=== PATIENT | male | born 1960 | race Caucasian/White ===

== ENCOUNTER 2018-03-04 06:09 | Observation (INO) ==
[2018-03-04] MEDS ORDERED: *HR* Labetalol 100 MG/20 ML MDV IVP ONE (06:15)
--- NOTE | 2018-03-04 06:21 | Emergency Department Note ---
Disposition Clinical Impression: Stroke-like symptoms Disposition: Still a Patient Condition: Fair Neuro HPI - General Chief Complaint: ED Neuro Symptoms/Deficit Stated Complaint: possible stroke Time Seen by Provider: 03/04/18 06:14 Source: patient, EMS Mode of arrival: EMS Limitations: no limitations Nursing Notes Reviewed: Yes Vital Signs Reviewed: Yes - History of Present Illness HPI Narrative: 57-year-old male presents to the emergency department with strokelike symptoms. Patient does have history of high blood pressure but is very noncompliant with medications. EMS stated that he was complaining of right-sided weakness in his leg and his arm but the arm has since resolved. They said that he woke up at approximate 5 AM with this last known normal was when he went to bed last night. was one that called EMS. Patient states he does not have any headaches no neck pain no fever chest pain shortness of breath abdominal pain loss of bladder or bowels and has had no recent trauma. Patient states she does feel weak in his right leg otherwise has no complaints. - Related Data Home Medications: Previous Rx's Medication Instructions Recorded Cephalexin [Keflex] 500 mg PO TID #21 capsule 02/08/18 Allergies/Adverse Reactions: Allergies Allergy/AdvReac Type Severity Reaction Status Date / Time No Known Allergies Allergy Verified 02/08/18 10:32 All systems ED: reviewed and negative except as stated. Review of Systems: As Per HPI Constitutional: Denies: fever, chills, weakness, weight change Eyes: Denies: eye pain, eye discharge, vision change ENT ED: Denies: ear pain, throat pain, dental pain, hearing loss, epistaxis, congestion, dysphagia Cardiovascular: Denies: chest pain, palpitations, dyspnea on exertion, edema, syncope Respiratory: Denies: cough, dyspnea, wheezes, hemoptysis, stridor Gastrointestinal: Denies: abdominal pain, nausea, vomiting, diarrhea, constipation, hematemesis, melena, hematochezia Genitourinary: Denies: urgency, dysuria, frequency, hematuria Musculoskeletal: Denies: back pain, neck pain, arthralgia, myalgia Integumentary: Denies: rash, abrasion, lesions Neurological: Reports: weakness. Denies: headache, numbness, paresthesias, confusion, abnormal gait, vertigo Psychiatric: Denies: anxiety, depression, suicidal thoughts, homicidal thoughts , auditory hallucinations, visual hallucinations Endocrine: Denies: fatigue Hematological/Lymphatic: Denies: easy bleeding, easy bruising Allergic/Immunologic: Denies: facial swelling, urticaria Past Medical History - Past Medical History Attestation: Yes The following information was validated with the patient. Source: patient Medical history: Reports: diabetes, hypertension Psychiatric history: Reports: no psych history - Social History Smoking Status: Current every day smoker Alcohol use: Reports: none Drug use: Reports: marijuana Physical Exam - General Limitations: no limitations General appearance: alert, in no apparent distress - Head Head exam: atraumatic, normocephalic, normal inspection - Eye Eye exam: Present: normal appearance, PERRL, EOMI - ENT ENT exam: normal exam, normal oropharynx, mucous membranes moist - Neck Neck exam: Present: normal inspection, full ROM, trachea midline - Chest Chest inspection: Present: normal inspection, symmetric chest wall rise - Respiratory Respiratory exam: Present: normal lung sounds bilaterally - Cardiovascular Cardiovascular exam: Present: regular rate, normal rhythm, normal heart sounds - Abdominal Exam Abdominal exam: Present: soft, Non-Tender. Absent: tenderness, distention, guarding, rebound, rigidity - Extremities Exam Extremities exam: Present: normal inspection, full ROM. Absent: tenderness, pedal edema - Expanded Lower Extremity Exam Neurovascular/Tendon exam: Present: normal capillary refill. Absent: pulse deficit, motor deficit, sensory deficit, tendon deficit - Back Exam Back exam: Present: normal inspection, full ROM. Absent: tenderness, CVA tenderness (R), CVA tenderness (L) - Neurological Exam Neurological exam: Present: alert, oriented X3 - Expanded Neurological Exam Patient oriented to: Present: person, place, time Speech: Present: expressive aphasia (Mild) Cranial nerves: EOM function (II, III, IV, ): Normal, facial sensation (V): Normal, facial palsy (VII): Normal, spinal accessory function (XI): Normal, tongue deviation (XII): Normal Cerebellar function: finger to nose: Normal, heel to mckinney: Normal Motor strength - LUE: 4/5 Motor strength - RUE: 4/5 Motor strength - LLE: 4/5 Motor strength - RLE: 2/5 Upper motor neuron exam: bj neglect: Absent bilaterally, pronator drift: Absent bilaterally Sensory exam upper extremity: light touch: Normal Sensory exam lower extremity: light touch: Normal Coma Scale Eye Opening: Spontaneous Coma Scale Motor Response: Obeys Commands Coma Scale Verbal Response: Oriented Coma Scale Total: 15 - Skin Skin exam: Present: warm, dry, intact, normal color Course Course Narrative: 57-year-old male here with strokelike symptoms. Due to patient's timeframe of waking up and last known well being when the patient fell sleep the stroke alert was canceled. So we will do normal stroke workup including CT head, basic labs including CBC, BMP, troponin, coags as well as an EKG. Vital Signs Temperature 98.5 F 03/04/18 06:09 Pulse Rate 83 03/04/18 06:09 Respiratory Rate 18 03/04/18 06:09 Blood Pressure 177/86 03/04/18 06:09 O2 Sat by Pulse Oximetry 100 03/04/18 06:09 Temperature 98.5 F 03/04/18 06:09 Pulse Rate 83 03/04/18 06:09 Respiratory Rate 18 03/04/18 06:09 Blood Pressure 177/86 03/04/18 06:09 O2 Sat by Pulse Oximetry 100 03/04/18 06:09 Oxygen Delivery Oxygen Delivery Room Air Neuro Symptoms/Deficit - MDM Narrative Medical decision making narrative: 57-year-old male presented emergency department with strokelike symptoms. Patient was found by and approximate 5:00 this morning as having weakness in the right side and having difficulty with speech and there was worry for stroke. The last time that someone saw him well was on 11:00 last night. Due to this the patient is outside the window for TPA so the stroke alert was canceled. Patient does have an NIH of 2 After talking with family there was a lot of discussion as to why we cannot give TPA and also patient had elevated blood pressure we explained the situation to family and they understood. We will get a CT of the head as well as basic labs. These are not back so the patient will be signed out to the day team doctor Keith and Dr. Tracey. At this time patient is stable. - Medical Records Medical records reviewed: Yes I reviewed the patient's medical records. - Lab Data Lab results reviewed: Yes I reviewed the patient's lab results. - Radiology Data Radiology results reviewed: Yes I reviewed the patient's radiology results. - EKG Data EKG attestation: Yes I reviewed and interpreted this EKG. EKG results narrative: EKG done at 0 621 review myself and the attending shows normal sinus rhythm rate 72, [place] 126, QRS 103, QTC 441 with a normal axis. There is no acute ST changes no acute T-wave changes no signs of ischemia. No heart block, hypertrophy, heart strain. No WPW/Brugada/HOCM. No old EKG to compare with. NIH Stroke Scale - Level of Consciousness LOC: Alert - LOC Questions LOC Questions: Answers both correctly - LOC Commands LOC Commands: Performs both correctly - Best Gaze Best Gaze: Normal - Visual Visual: No visual loss - Facial Palsy Facial Palsy: Normal - Motor Arms Motor Arm-Left: No drift for 10 seconds Motor Arm-Right: No drift for 10 seconds - Motor Legs Motor Leg-Left: No drift for 5 seconds Motor Leg-Right: Drift, does NOT hit bed - Limb Ataxia Limb Ataxia: Absent of affected limb too weak to perform exam - Sensory Sensory: Normal - Best Language Best Language: No aphasia - Dysarthria Dysarthria: Mild, slurs some words - Extinction and Inattention Extinction and Inattention: Normal - NIHSS Total Score NIHSS Total Score: 2 TPA Checklist - LKW: 3-4.5 hrs Add. Warnings/Precautions Patient/family understanding: The patient/family members have been counseled and understood the risk, benefit , and alternatives of treatment.
--- NOTE | 2018-03-04 06:23 | Emergency Department Note ---
Disposition Clinical Impression: Cerebrovascular accident Qualifiers: CVA mechanism: other Qualified Code(s): I63.8 - Other cerebral infarction Disposition: Still a Patient Forms: ED Satisfaction Letter General Adult HPI - General Chief complaint: ED Neuro Symptoms/Deficit Stated complaint: possible stroke Time Seen by Provider: 03/04/18 06:14 Source: patient, EMS Mode of arrival: EMS Limitations: no limitations - History of Present Illness Pain Scale: 0 - Related Data Previous Rx's Medication Instructions Recorded Cephalexin [Keflex] 500 mg PO TID #21 capsule 02/08/18 Allergies Allergy/AdvReac Type Severity Reaction Status Date / Time No Known Allergies Allergy Verified 02/08/18 10:32 Past Medical History - Past Medical History Medical history: Reports: diabetes, hypertension Psychiatric history: Reports: no psych history - Social History Smoking Status: Current every day smoker Alcohol use: Reports: none Drug use: Reports: marijuana Physical Exam - General Limitations: no limitations General appearance: alert, in no apparent distress Course - Reevaluation(s) Reevaluation #1: ED attending attestation note: I examined this patient and my medical decision-making was reviewed with the emergency medicine resident Olvin Tiwari. I agree with the documented findings , disposition and treatment plan as described except to the extent set forth below. Briefly: 57-year-old male brought in by EMS for possible stroke symptoms. Patient awoke from sleep at 5 AM having weakness of his right lower extremity questionable dysarthria which is resolved. Here for further evaluation. Patient's NIH currently is to. The patient waking up from sleep at 5 AM with the symptoms already present patient is not deemed a candidate for TPA. Patient will get noncontrast head CT screening labs and EKG. Anticipated disposition is admission with neurologic consultation. Disposition pending. Providing 30 minutes of critical care service for this patient Time: 06:21 Vital Signs Temperature 98.5 F 03/04/18 06:09 Pulse Rate 83 03/04/18 06:09 Respiratory Rate 18 03/04/18 06:09 Blood Pressure 177/86 03/04/18 06:09 O2 Sat by Pulse Oximetry 100 03/04/18 06:09 Temperature 98.5 F 03/04/18 06:09 Pulse Rate 83 03/04/18 06:09 Respiratory Rate 18 03/04/18 06:09 Blood Pressure 177/86 03/04/18 06:09 O2 Sat by Pulse Oximetry 100 03/04/18 06:09 Oxygen Delivery Oxygen Delivery Room Air
[2018-03-04 06:25] LABS: Basophils # 0.1 K/mcL (0.0-0.2); Basophils % 0.6 %; Hematocrit 34.3 % (37.5-50.1); Hemoglobin 11.3 g/dL (12.9-16.9); Immature Granulocytes % 0.4 % (0-4); Lymphocytes # 2.5 K/mcL (0.6-4.6); Lymphocytes % 23.6 %; Mean Corpuscular HGB Conc 32.9 g/dL (31.6-35.5); Mean Corpuscular Hemoglobin 30.1 pg (28.0-33.3); Mean Corpuscular Volume 91.2 fL (83.0-100.0); Mean Platelet Volume 10.3 fL (9.4-12.4); Monocytes # 0.9 K/mcL (0.0-1.3); Monocytes % 8.7 %; Neutrophils # 7.1 K/mcL (1.6-8.9); Platelet Count 286 K/mcL (140-400); Red Blood Count 3.76 M/mcL (4.19-5.50); Red Cell Distribution Width 13.9 % (11.5-14.5); Segmented Neutrophils % 66.7 %
[2018-03-04 06:31] LABS: Prothrombin Time 11.7 Seconds (9.4-12.1)
[2018-03-04 06:33] LABS: Activated Partial Thrombo Time 30.8 Seconds (26.0-36.0)
[2018-03-04 06:48] LABS: BUN/Creatinine Ratio 16 (6-26); Blood Urea Nitrogen 40 mg/dL (6-20); Calcium 8.9 mg/dL (8.6-10.3); Carbon Dioxide 21 mEq/L (23-29); Chloride 113 mEq/L (98-107); Glucose 139 mg/dL (70-105); Osmolality,Calculated 296 (280-300); Potassium 5.9 mEq/L (3.5-5.1); Sodium 137 mEq/L (136-145); eGFR For Non-African Americans 27 (> 60)
[2018-03-04 07:08] LABS: Troponin I < 0.03 ng/mL (< 0.04)
--- NOTE | 2018-03-04 07:22 | Emergency Department Note ---
Disposition Clinical Impression: Cerebrovascular accident, Stroke-like symptoms Disposition: Admitted As Inpatient Condition: Fair Forms: ED Satisfaction Letter General Adult HPI - General Chief complaint: ED Neuro Symptoms/Deficit Stated complaint: possible stroke Time Seen by Provider: 03/04/18 06:14 Source: patient, EMS Mode of arrival: EMS Limitations: no limitations - History of Present Illness Pain Scale: 0 - Related Data Home Medications Medication Instructions Recorded Confirmed No Known Home Drugs 03/04/18 03/04/18 Allergies Allergy/AdvReac Type Severity Reaction Status Date / Time No Known Allergies Allergy Verified 02/08/18 10:32 Constitutional: Denies: fever, chills, weakness, weight change Eyes: Denies: eye pain, eye discharge, vision change ENT ED: Denies: ear pain, throat pain, dental pain, hearing loss, epistaxis, congestion, dysphagia Cardiovascular: Denies: chest pain, palpitations, dyspnea on exertion, edema, syncope Respiratory: Denies: cough, dyspnea, wheezes, hemoptysis, stridor Gastrointestinal: Denies: abdominal pain, nausea, vomiting, diarrhea, constipation, hematemesis, melena, hematochezia Genitourinary: Denies: urgency, dysuria, frequency, hematuria Musculoskeletal: Denies: back pain, neck pain, arthralgia, myalgia Integumentary: Denies: rash, abrasion, lesions Neurological: Reports: weakness. Denies: headache, numbness, paresthesias, confusion, abnormal gait, vertigo Psychiatric: Denies: anxiety, depression, suicidal thoughts, homicidal thoughts , auditory hallucinations, visual hallucinations Endocrine: Denies: fatigue Hematological/Lymphatic: Denies: easy bleeding, easy bruising Allergic/Immunologic: Denies: facial swelling, urticaria Past Medical History - Past Medical History Medical history: Reports: diabetes, hypertension Psychiatric history: Reports: no psych history - Social History Smoking Status: Current every day smoker Alcohol use: Reports: none Drug use: Reports: marijuana Physical Exam - General Limitations: no limitations General appearance: alert, in no apparent distress Course Vital Signs Temperature 98.5 F 03/04/18 06:09 Pulse Rate 83 03/04/18 06:09 Respiratory Rate 18 03/04/18 06:09 Blood Pressure 177/86 03/04/18 06:09 O2 Sat by Pulse Oximetry 100 03/04/18 06:09 Temperature 98.5 F 03/04/18 06:09 Pulse Rate 79 03/04/18 06:48 Respiratory Rate 20 03/04/18 06:48 Blood Pressure 169/51 03/04/18 06:48 O2 Sat by Pulse Oximetry 98 03/04/18 06:48 Oxygen Delivery Oxygen Delivery Room Air Medical Decision Making - Lab Data Result diagrams: 03/04/18 06:15 03/04/18 06:15 Lab Results 03/04/18 03/04/18 03/04/18 Range/Units 06:15 06:15 06:15 WBC 10.6 (4.3-11.1) K/mcL RBC 3.76 L (4.19-5.50) M/mcL Hgb 11.3 L (12.9-16.9) g/dL Hct 34.3 L (37.5-50.1) % MCV 91.2 (83.0-100.0) fL MCH 30.1 (28.0-33.3) pg MCHC 32.9 (31.6-35.5) g/dL RDW 13.9 (11.5-14.5) % Plt Count 286 (140-400) K/mcL MPV 10.3 (9.4-12.4) fL Immature Gran % 0.4 (0-4) % Seg Neutrophils % 66.7 % Lymphocytes % 23.6 % Monocytes % 8.7 % Eosinophils % 0.0 % Basophils % 0.6 % Neutrophils # 7.1 (1.6-8.9) K/mcL Lymphocytes # 2.5 (0.6-4.6) K/mcL Monocytes # 0.9 (0.0-1.3) K/mcL Eosinophils # 0.0 (0.0-0.6) K/mcL Basophils # 0.1 (0.0-0.2) K/mcL PT 11.7 (9.4-12.1) Seconds INR 1.0 APTT 30.8 (26.0-36.0) Seconds Sodium 137 (136-145) mEq/L Potassium 5.9 H (3.5-5.1) mEq/L Chloride 113 H (98-107) mEq/L Carbon Dioxide 21 L (23-29) mEq/L BUN 40 H (6-20) mg/dL Creatinine 2.46 H (0.70-1.30) mg/dL Est GFR ( Amer) 33 L (> 60) Est GFR (Non-Af Amer) 27 L (> 60) BUN/Creatinine Ratio 16 (6-26) Glucose 139 H (70-105) mg/dL Calculated Osmolality 296 (280-300) Calcium 8.9 (8.6-10.3) mg/dL Troponin I < 0.03 (< 0.04) ng/mL Attestation Statement - Attestation Attestation: I examined this patient and my medical decision-making was reviewed with the Resident Physician. I agree with the documented findings, disposition and treatment plan as described except to the extent set forth below. 57 year old male presemts to the ED with complaints of stroke like symptoms and neuro defecits. last known well was 2300 of yesterday. PAtine was seen by night team ([facility]) and stroke workup has begun without stroke alert being called due to being outside the window for TpA. We will contineu with stroke workup and then admit to medicine pending CT/labs
--- NOTE | 2018-03-04 07:31 | Emergency Department Note ---
Disposition Clinical Impression: Stroke-like symptoms Cerebrovascular accident Qualifiers: CVA mechanism: unspecified Qualified Code(s): I63.9 - Cerebral infarction, unspecified Disposition: Admitted As Inpatient Condition: Fair Referrals: NONE,PCP [Primary Care Provider] - Lillian Cunningham [Family Provider] - Forms: ED Satisfaction Letter Time of Disposition: 09:07 General Adult HPI - General Chief complaint: ED Neuro Symptoms/Deficit Stated complaint: possible stroke Time Seen by Provider: 03/04/18 06:14 Source: patient, EMS Mode of arrival: EMS Limitations: no limitations Nursing Notes Reviewed: Yes Vital Signs Reviewed: Yes - History of Present Illness HPI Narrative: This is a patient who care has been transferred over to pr by signout. Patient' s reporting last known well was 2300 yesterday. Woke up at 5 AM with dysarthria , right upper and right lower extremity weakness. Patient not a candidate for TPA as he was out of the window. Refer to history of present illness, physical exam, medical decision-making from previous notes. Pain Scale: 0 - Related Data Home Medications Medication Instructions Recorded Confirmed No Known Home Drugs 03/04/18 03/04/18 Allergies Allergy/AdvReac Type Severity Reaction Status Date / Time No Known Allergies Allergy Verified 03/04/18 07:55 Constitutional: Denies: fever, chills, weakness, weight change Eyes: Denies: eye pain, eye discharge, vision change ENT ED: Denies: ear pain, throat pain, dental pain, hearing loss, epistaxis, congestion, dysphagia Cardiovascular: Denies: chest pain, palpitations, dyspnea on exertion, edema, syncope Respiratory: Denies: cough, dyspnea, wheezes, hemoptysis, stridor Gastrointestinal: Denies: abdominal pain, nausea, vomiting, diarrhea, constipation, hematemesis, melena, hematochezia Genitourinary: Denies: urgency, dysuria, frequency, hematuria Musculoskeletal: Denies: back pain, neck pain, arthralgia, myalgia Integumentary: Denies: rash, abrasion, lesions Neurological: Reports: weakness. Denies: headache, numbness, paresthesias, confusion, abnormal gait, vertigo Psychiatric: Denies: anxiety, depression, suicidal thoughts, homicidal thoughts , auditory hallucinations, visual hallucinations Endocrine: Denies: fatigue Hematological/Lymphatic: Denies: easy bleeding, easy bruising Allergic/Immunologic: Denies: facial swelling, urticaria Past Medical History - Past Medical History Medical history: Reports: diabetes, hypertension Psychiatric history: Reports: no psych history - Social History Smoking Status: Current every day smoker Alcohol use: Reports: none Drug use: Reports: marijuana Physical Exam - General Limitations: no limitations General appearance: alert, in no apparent distress - Head Head exam: normocephalic - Eye Eye exam: Present: PERRL - ENT ENT exam: mucous membranes dry - Neck Neck exam: Present: trachea midline - Chest Chest inspection: Present: symmetric chest wall rise - Respiratory Respiratory exam: Present: normal lung sounds bilaterally. Absent: respiratory distress - Cardiovascular Cardiovascular exam: Present: regular rate, normal rhythm, normal heart sounds - Abdominal Exam Abdominal exam: Present: soft, Non-Tender. Absent: distention, guarding, rebound, rigidity - Extremities Exam Extremities exam: Present: normal capillary refill - Back Exam Back exam: Present: full ROM - Neurological Exam Neurological exam: Present: alert, oriented X3, other (Right pronator drift, right lower extremity strength 4 out of 5, severe dysarthria) - Psychiatric Psychiatric exam: Present: other (crying) - Skin Skin exam: Present: warm, dry, intact, normal color Course Vital Signs Temperature 98.5 F 03/04/18 06:09 Pulse Rate 83 03/04/18 06:09 Respiratory Rate 18 03/04/18 06:09 Blood Pressure 177/86 03/04/18 06:09 O2 Sat by Pulse Oximetry 100 03/04/18 06:09 Temperature 98.5 F 03/04/18 06:09 Pulse Rate 78 03/04/18 08:31 Respiratory Rate 20 03/04/18 08:31 Blood Pressure 176/75 03/04/18 08:31 O2 Sat by Pulse Oximetry 97 03/04/18 08:31 Oxygen Delivery Oxygen Delivery Room Air Medical Decision Making - MDM Narrative Medical decision making narrative: Transfer for of care provided to me by the night team. Currently awaiting CT scan of the head without contrast. Patient has elevated creatinine of 2.46. No previous creatinine to compare this to. Potassium is currently 5.9. No evidence of any peaked T waves on the EKG. we will not provide any medical therapy for the potassium at this time. CT scan of the head without contrast and not reveal any intracranial abnormality. Patient had an NIH of 5. Cannot swallow aspirin. We will give it rectally. Was given 325 mg. Patient will be admitted to hospitalist. I discussed this plan at bedside with both girlfriend and sister. Dr. Montanez requested that I speak to the neurologist regarding the case. I have consulted Dr. Bazzi, the neurologist, and he agreed to follow patient. - Lab Data Result diagrams: 03/04/18 06:15 03/04/18 06:15 Lab Results 03/04/18 03/04/18 03/04/18 Range/Units 06:15 06:15 06:15 WBC 10.6 (4.3-11.1) K/mcL RBC 3.76 L (4.19-5.50) M/mcL Hgb 11.3 L (12.9-16.9) g/dL Hct 34.3 L (37.5-50.1) % MCV 91.2 (83.0-100.0) fL MCH 30.1 (28.0-33.3) pg MCHC 32.9 (31.6-35.5) g/dL RDW 13.9 (11.5-14.5) % Plt Count 286 (140-400) K/mcL MPV 10.3 (9.4-12.4) fL Immature Gran % 0.4 (0-4) % Seg Neutrophils % 66.7 % Lymphocytes % 23.6 % Monocytes % 8.7 % Eosinophils % 0.0 % Basophils % 0.6 % Neutrophils # 7.1 (1.6-8.9) K/mcL Lymphocytes # 2.5 (0.6-4.6) K/mcL Monocytes # 0.9 (0.0-1.3) K/mcL Eosinophils # 0.0 (0.0-0.6) K/mcL Basophils # 0.1 (0.0-0.2) K/mcL PT 11.7 (9.4-12.1) Seconds INR 1.0 APTT 30.8 (26.0-36.0) Seconds Sodium 137 (136-145) mEq/L Potassium 5.9 H (3.5-5.1) mEq/L Chloride 113 H (98-107) mEq/L Carbon Dioxide 21 L (23-29) mEq/L BUN 40 H (6-20) mg/dL Creatinine 2.46 H (0.70-1.30) mg/dL Est GFR ( Amer) 33 L (> 60) Est GFR (Non-Af Amer) 27 L (> 60) BUN/Creatinine Ratio 16 (6-26) Glucose 139 H (70-105) mg/dL Calculated Osmolality 296 (280-300) Calcium 8.9 (8.6-10.3) mg/dL Troponin I < 0.03 (< 0.04) ng/mL
[2018-03-04] MEDS ORDERED: Aspirin 325 MG TABLET PO ONE (08:04)
--- NOTE | 2018-03-04 10:22 | Internal Med History&Physical ---
Date of Encounter: 03/04/18 Time of Encounter: 10:22 Internal Medicine - H&P: HPI Chief complaint: weakness in arm and leg Admitted From: Home Plans for Post Hospital Care: Home History of present illness: Mr. Cantrell is a 57 year old male with past medical history of hypertension and diabetes not taking any medication's coming in with complaint of weakness in arm and leg. Patient was at baseline when he went to sleep at around 11:00. He will call up to go to bathroom around 5:00 and noticed that his speech was slurred, head arm and leg weakness on his right side and had difficulty getting up. He denies any weakness or slurring of speech in the past or previous history of stroke. Denies any cardiac history. He has not been to a doctor for many years as per family at bedside. He lives at home with his girlfriend. Denies any chest pain, palpitation, shortness of breath, headache or blurry vision. Denies any pedal edema. Patient had signs of clinical stroke and a head CT scan no was in ER which did not show any bleeding. Patient received aspirin 325 rectally as his swallowing was impaired and 1 dose of labetalol 20 mg IV. On interview patient was alert awake and oriented 3. Denied any other complaints besides the weakness in his right upper and lower extremity as well as difficulty speaking and swallowing. In distress and tearful because of stroke. Family at bedside. Denies any history of any kidney problems. Currently not taking any medications. Past Med Surg Social Fam HX - Past Medical History Medical history: diabetes, hypertension Psychiatric history: no psych history - Social History Smoking Status: Current every day smoker Alcohol use: none Drug use: marijuana Internal Medicine - H&P: Meds No Known Home Drugs 03/04/18 [History] 3 Allergy/AdvReac Type Severity Reaction Status Date / Time No Known Allergies Allergy Verified 03/04/18 07:55 All Systems PM: A 10-system review of systems was performed and is negative for pertinent findings except as documented above in the HPI. - Constitutional Vitals: Temp Pulse Resp BP Pulse Ox 98.5 F 84 20 152/61 98 03/04/18 06:09 03/04/18 10:04 03/04/18 10:04 03/04/18 10:04 03/04/18 10:03 Exam: Constitutional: Vitals as noted. Conversant. No Apparent Distress. Well groomed. Obese. tearful. Eyes exam: Sclera white, conjunctiva clear, no lid lag, PEARLA. ENT exam: Grossly normal hearing. Nasophargeal and Oropharyngeal exam unremarkable. Moist mucus membranes. No JVD, carotid bruit, no cervical lymphadenopathy. no thyromegaly or mass. Respiratory exam: Clear to auscultation bilaterally. No accessory muscle use, rales, rhonchi or wheezes Cardiovascular exam: RRR, +S1, +S2. no murmur, gallop, rubs. No chest wall tenderness GI/Abdominal exam: Soft, Non-tender, Non-distended, normal bowel sounds, soft, no peritoneal signs. no orgenomegaly or mass appreciated. no hernia. Musculoskeletal exam: no atrophy or deformity noted. no edema or cyanosis, warm , pulses palpable and symmetrical in UE/LE. no calf tenderness. Neurological exam: AO X3, Slurring of speech, droling, Mouth deviated toward left with flat nasolabial fold on Rt. Motor weakness on RUE 3/5 and RLE 3/5 compared to 5/5 on RUE and RLE. Diminisehd brachial and knee reflex. Babinski positive on Rt. Skin exam: No skin rash, lesions or ulcers noted. no purpura or ecchymosis. Pych: Tearful. Internal Med - H&P Results - Labs CBC & Chem 7: 03/04/18 06:15 03/04/18 06:15 - Assessment and plan (1) Cerebrovascular accident Current Visit: Yes Status: Acute Assessment and plan: Clinically patient has stroke with symptoms on his right side(Rt face, arm and leg) indicating involvement of Lt MCA and or QUIRINO territory. - We will obtain echocardiogram and carotid ultrasound to evaluate for cardioembolic stroke. - First troponin negative. Patient without chest pain or EKG findings.. - Neurology consulted. We will defer timing of MRI to neurology. - Physical therapy and occupational therapy consulted. - Speech and swallowing evaluation. - Continue daily aspirin. - We will allow permissive hypertension given his stroke. - Continue patient on telemetry Qualifiers: CVA mechanism: other Qualified Code(s): I63.8 - Other cerebral infarction (2) Diabetes Current Visit: Yes Status: Acute Assessment and plan: Patient not taking any medication for diabetes - Monitor Accu-Cheks and low intensity sliding scale insulin - We will obtain HbA1c and lipid profile Qualifiers: Qualified Code(s): E11.9 - Type 2 diabetes mellitus without complications (3) PORFIRIO (acute kidney injury) Current Visit: Yes Status: Acute Assessment and plan: Elevated creatinine and GFR - Unknown baseline. Likely patient has CKD. - We will monitor renal function daily. - Given elevated potassium of 5.9 we will give 500 mL of bolus and Lasix 20 mg IV. EKG without any hyperkalemic changes. Keep patient on telemetry. Follow- up BMP in 6 hours. - We will consult nephrology. (4) Hyperkalemia Current Visit: Yes Status: Acute Assessment and plan: as above (5) HTN (hypertension) Current Visit: Yes Status: Acute Assessment and plan: - Patient not on any home antihypertensives. - Monitor blood pressure. Allow permissive hypertension given likely thrombotic stroke. Qualifiers: Qualified Code(s): I10 - Essential (primary) hypertension (6) DVT prophylaxis Current Visit: Yes Status: Acute Assessment and plan: - Heparin subcutaneous - Time Spent With Patient Total time spent is greater than 50% in coordination of care (as documented) at patient's floor/unit and/or counseling patient:
[2018-03-04] MEDS ORDERED: 0.9 % Sodium Chloride 500 ML IVC ONE (11:01)
[2018-03-04] MEDS ORDERED: Furosemide 20 MG/2 ML VIAL IVP ONE (11:01)
[2018-03-04] MEDS ORDERED: Insulin LISPRO 300 UNITS/3 ML VIAL SQ SCH (11:30)
[2018-03-04] MEDS: *HR* Heparin 5,000 UNIT/ML VIAL SQ SCH ×2 (15:04→20:45)
--- NOTE | 2018-03-04 17:15 | Nephrology Consult Note ---
Date of Encounter: 03/04/18 Time of Encounter: 14:00 Assessment and Plan (1) PORFIRIO (acute kidney injury) Status: Acute Elevated SCr in the setting of untreated DM and likely HTN with baseline unclear Will obtain US of kidney Will check urinary studies Avoid nephrotoxins if possible No acute indication for JEWEL GRINDER at this time Strict I/Os advised Will give gentle fluids while NPO Explained to pt and family repeatedly that the most concerning and pressing issue is neurologic but will follow from a renal standpoint (2) Cerebrovascular accident Status: Chronic Asked nurse to contact hospitalist CHRISTINA to see and patient, CVA of great concern and not yet seen by neurology Qualifiers: CVA mechanism: unspecified Qualified Code(s): I63.9 - Cerebral infarction, unspecified (3) HTN (hypertension) Status: Chronic No aggressive management given possible CVA Qualifiers: Hypertension type: essential hypertension Qualified Code(s): I10 - Essential (primary) hypertension (4) Hyperkalemia Status: Resolved Potassium at 5.9 noted, not tolerating po intake for now Renal diet when able Kayexalate rectally if needed but will hold off and repeat levels History of Present Illness - Reason for Consult Consult date: 03/04/18 Acute Kidney Injury, hyperkalemia Requesting physician: Enid Montanez - History of Present Illness 57 y o male with no PMH except diabetes per family which has remained untreated for years admitted with acute dysathria and right sided hemiparesis. Renal consulted for elevated SCr of 2.46, GFR 27 with baseline unknown as no prior doctor visit or labs in years. Potassium noted at 5.9. No prior history of renal disease or urinary sxs per family. Pt very anxious on prognosis with elevated BP readings up to 180s systolic noted. Pt received lasix, NS 500cc bolus and labetalol so far per nurse. Past Med Surg Social Fam HX - Past Medical History Medical history: diabetes, hypertension Psychiatric history: no psych history - Past Surgical History Surgical History: no surgical history - Social History Smoking Status: Current every day smoker Alcohol use: none Drug use: marijuana - Family History Father History Unknown: Yes Mother History Unknown: Yes Medications and Allergies RX: Acetaminophen [Non-Aspirin] 650 mg PO Q4H PRN 03/28/18 [History] RX: Amlodipine Besylate 10 mg PO DAILY 03/28/18 [History] RX: Aspirin [Lo-Dose Aspirin EC] 81 mg PO DAILY 03/28/18 [History] RX: Atorvastatin Calcium [Lipitor] 80 mg PO HS 03/28/18 [History] RX: Insulin Glargine [Lantus] 20 unit SQ DAILY 03/28/18 [History] RX: Insulin Human Regular [HumuLIN R] 2 - 12 unit SQ TID 03/28/18 [History] RX: Ipratropium/Albuterol Neb [Duoneb] 3 ml IH Q6HR 03/28/18 [History] RX: Melatonin 1 mg PO HS 03/28/18 [History] RX: Omeprazole 40 mg PO DAILY 03/28/18 [History] RX: Sertraline [Zoloft] 25 mg PO DAILY 03/28/18 [History] RX: Sodium Bicarbonate 650 mg PO TID 03/28/18 [History] RX: hydrALAZINE [HydrALAZINE] 75 mg PO TID 03/28/18 [History] RX: traZODone [TraZODone] 25 mg PO HS PRN 03/28/18 [History] RX: Levofloxacin [Levaquin] 750 mg PO DAILY 5 Days #5 tablet 04/01/18 [Rx] RX: Metoprolol [Lopressor] 25 mg PO BID 30 Days #60 tablet 04/01/18 [Rx] Allergy/AdvReac Type Severity Reaction Status Date / Time No Known Allergies Allergy Verified 03/04/18 07:55 Review of Systems All Systems: reviewed and no additional remarkable complaints except as stated (10 systems reviewed and noted in HPI) Exam - Vital Signs Vital signs: Initial Vital Signs Temp Pulse Resp BP Pulse Ox 98.5 F 83 18 177/86 100 03/04/18 06:09 03/04/18 06:09 03/04/18 06:09 03/04/18 06:09 03/04/18 06:09 Vital Signs - Last 8 Hours Temp Pulse Resp BP Pulse Ox 03/04/18 16:09 98.5 F 66 20 163/77 96 03/04/18 11:21 20 158/66 03/04/18 11:00 84 20 152/61 Intake and Output 03/04/18 03/04/18 03/04/18 07:59 15:59 23:59 Intake Total 500 / 500 Output Total 150 / 150 Balance 500 / 500 -150 / -150 Intake: IV Fluids 500 / 500 0.9 % Sodium Chloride 500 ML @ 500 / 500 999 mls/hr IVC .Q31M ONE Rx#: [id number] Output: Urine 150 / 150 Other: # Urine Diapers 1 Blood Glucose* 120 - General Appearance General appearance: moderate distress (unkempt), anxious EENT: ATNC, mucous membranes moist Neck: no JVD, supple Respiratory: clear Cardiology: no edema, normal S1, normal S2 Gastrointestinal: no tenderness, no guarding Integumentary: warm and dry Additional Comments: slurred speech Musculoskeletal: no deformities Psychiatric: cooperative Results - Lab Results 03/04/18 06:15 03/04/18 18:07 Most recent lab results Calcium 8.9 mg/dL (8.6-10.3) 03/04/18 06:15 Consult Discharge Plan - Plan Referrals: NONE,PCP [Primary Care Provider] - Lillian Cunningham [Family Provider] -
--- NOTE | 2018-03-04 17:15 | Electrocardiograph Report ---
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
--- NOTE | 2018-03-04 17:33 | Neurology - Consult Note ---
Date of Encounter: 03/04/18 Time of Encounter: 17:31 Assessment and Plan (1) Cerebrovascular accident Current Visit: Yes Status: Acute Patient is a 57 year old man with HTN and obesity who developed acute onset of right sided hemiparesis and significant dysarthria, mental status appear not blunted. NO headaches reported. likely lacunar infarct which could involve brain stem or small embolic event. Probably not a large stroke. Certainly needs stroke work up including carotid artery duplex, echocardiography , MRI of brain MRA of brain and neck. Permissive HTN management during acute phase of CVA. Swallow and speech evaluation, DVT prophylaxis, PT evaluation needed. agree with aspirin 325mg daily. Check lipid panel and statin therapy accordingly. Please continue medical and supportive care Qualifiers: CVA mechanism: unspecified Qualified Code(s): I63.9 - Cerebral infarction, unspecified History of Present Illness Chief complaint: right sided weakness HPI: Mr. Cantrell is a 57 year old male with PMH signficant for HTN, obesity hyperlipidemia who presented to ER at outside hospital with new onset of right sided weakness. Last known well was last night 11pm and he woke up with morning at about 5 am noticing right sided weakness and slurred speech. He was transferred here from outside hospital. It was decided that since symptoms onset time is unknown therefore he is not a candidate for tPA thrombolysis therapy. [facility] stroke telemedicine not activated. Initial CT of head showed no acute intracranial abnormality. Currently patient is severely dysarthric/dysphasic. Unable to provide detailed history. However, he does not appear to be in any acute distress. Denies headache. Past Med Surg Social Fam HX - Past Medical History Medical history: diabetes, hypertension Psychiatric history: no psych history - Social History Smoking Status: Current every day smoker Alcohol use: none Drug use: marijuana Medications and Allergies No Known Home Drugs 03/04/18 [History] 3 Allergy/AdvReac Type Severity Reaction Status Date / Time No Known Allergies Allergy Verified 03/04/18 07:55 All Systems: The remainder of the systems were reviewed and are negative Physical Examination - Vital Signs Vital Signs: Initial Vital Signs Temp Pulse Resp BP Pulse Ox 98.5 F 83 18 177/86 100 03/04/18 06:09 03/04/18 06:09 03/04/18 06:09 03/04/18 06:09 03/04/18 06:09 - Constitutional General appearance: uncomfortable - Neurologic Sensorimotor examination: other (Unable to assess due to significant dysphasia) Motor examination - right side: 3/5: deltoids, biceps, triceps, wrist flexion, wrist extension, meter readers 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, 4/5: hip flexors, tibialis Anterior, quadriceps, toe extension (EHL), plantarflexion Motor examination - left side: 5/5: deltoids, biceps, triceps, wrist flexion, wrist extension, hip flexors, meter readers supervisor, quadriceps, tibialis Anterior, toe extension (EHL), plantarflexion Detailed sensory examination: other (Unable to assess due to significant dysphasia) Reflexes: Biceps: 3+, Triceps: 3+, Brachioradialis: 3+, Patella: 3+, Achilles: 3 + Mental Status Examination: awake, alert, oriented to person, follows commands appropriately, follows simple commands, expressive aphasia Cranial nerve examination: PERRL, EOMI, visual gold intact, corneal reflexes brisk symmetrically, sensory to face intact, mastication intact, no facial asymmetry is present, no dysarthria, hearing is intact symmetrically, soft palate elevates bilaterally upon phonation, gag reflex intact, tongue protrudes midline (Tongue protrude to right side) Results - Laboratory Findings CBC and BMP: 03/04/18 06:15 03/04/18 06:15 Abnormal lab findings: Abnormal lab results RBC 3.76 M/mcL (4.19-5.50) L 03/04/18 06:15 Hgb 11.3 g/dL (12.9-16.9) L 03/04/18 06:15 Hct 34.3 % (37.5-50.1) L 03/04/18 06:15 Potassium 5.9 mEq/L (3.5-5.1) H 03/04/18 06:15 Chloride 113 mEq/L (98-107) H 03/04/18 06:15 Carbon Dioxide 21 mEq/L (23-29) L 03/04/18 06:15 BUN 40 mg/dL (6-20) H 03/04/18 06:15 Creatinine 2.46 mg/dL (0.70-1.30) H 03/04/18 06:15 Est GFR ( Amer) 33 (> 60) L 03/04/18 06:15 Est GFR (Non-Af Amer) 27 (> 60) L 03/04/18 06:15 Glucose 139 mg/dL (70-105) H 03/04/18 06:15 Consult Discharge Plan - Plan Referrals: NONE,PCP [Primary Care Provider] - Lillian Cunningham [Family Provider] -
[2018-03-04 18:40] LABS: Uric Acid 6.8 mg/dL (2.3-7.6)
[2018-03-04] MEDS: Insulin LISPRO 300 UNITS/3 ML VIAL SQ SCH ×2 (19:19→19:23)
[2018-03-04 20:36] LABS: Bilirubin,Urine Negative (Negative); Blood,Urine Trace (Negative); Clarity,Urine Clear (Clear); Color,Urine Yellow (Yellow); Glucose,Urine (UA) Normal (Normal); Ketones,Urine Negative (Negative); Leukocyte Esterase,Urine Negative (Negative); Nitrite,Urine Negative (Negative); Protein,Urine 100 mg/dL (Neg-Trace); Specific Gravity,Urine 1.007 (1.010-1.025); Urobilinogen,Urine Normal (Normal)
[2018-03-04 20:37] LABS: Bacteria,Urine None Seen per hpf (None-Few); Hyaline Casts,Urine None Seen per lpf (None-Few); RBC,Urine 0-3 per hpf (0-3); Squamous Epithelial Cell,Urine Many per lpf (None-Few); WBC,Urine 0-3 per hpf (0-3)
[2018-03-04 20:55] LABS: Sodium, Urine 132.1 mEq/L
[2018-03-05 00:09] VITALS: BP 175/65
[2018-03-05] MEDS ORDERED: 0.9 % Sodium Chloride 1,000 ML ONE (00:56)
--- NOTE | 2018-03-05 01:29 | Procedure Note ---
Date of procedure: 03/05/18 Pre-op diagnosis: Acute CVA Post-op diagnosis: same Procedure: Endotracheal intubation: Patient was having difficulty controlling his secretions and protecting his airway and the plan was made to transfer the patient to [facility] therefore it was determined that the patient go elective early intubation to prevent decompensation in route due to inability to protect airway. This was discussed with the patient and the family and they were agreeable. Patient was transferred to the ICU for close cardiopulmonary monitoring. Patient was preoxygenated with the bag valve mask. Patient was sedated with Versed 2 mg and etomidate 20 mg. A size 4 CMAC video laryngoscope was inserted into the oropharynx and a grade 1 view of the vocal cords was obtained. A 7.5 ET tube was visualized advancing through the vocal cords. The tube was advanced to the 24 cm arc at the lip line. Color metric changes noted as well as bilateral breath sounds. Patient was given 3 more milligrams of Versed post procedure for sedation and a propofol drip was ordered. Chest x-ray confirmed the ET tube in the trachea approximately 2 cm above the starr. The patient tolerated the procedure well. Transfer to [facility] is pending. Anesthesia: IV sedation (versed 2mg and etomidate 20mg ) Was there an retail assistant manager present: No Estimated blood loss (cc): 0 Specimen: none Pathology: none sent Condition: critical Disposition: ICU
[2018-03-05] MEDS ORDERED: *HR* Midazolam HCl 5 MG/5 ML VIAL IVP ONE (01:39)
[2018-03-05] MEDS ORDERED: *HR* Etomidate 20 MG/10 ML AMPUL IVP ONE (01:39)
--- NOTE | 2018-03-05 07:38 | Event Note ---
Date of Encounter: 03/04/18 Time of Encounter: 23:22 Called to patient's room by Ahmet Vazquez NP for worsening stroke symptoms. Patient presented earlier to the ER for CVA, right sided paralysis. Toward the end of the night he began having difficulty swallowing and there was concern for his ability to maintain his airway. Patient was requiring a suction device to help clear his airway constantly. He also had returned from the brain MRI that was performed about an hour before that showed Acute infarct involving the left side greater than right ventral jorge. He also had trace left cerebral convexity subdural collection, consistent with subacute hematoma. Due to the brain bleed, and dysphagia, I contacted [facility] transfer kerens for likely transfer to their facility. I spoke with Dr Parra of neurosurgery, discussed the MRI results with him. He stated that due to its current size that he would not require surgical intervention at this time, but that transfer was probably warranted. I then was connected to Dr. Garay and Dr. Blake of the neurology stroke team, who agreed patient would benefit from transfer as the dysphagia represented a change in the patient's condition. They advised that the patient be transferred to the ER to be evaluated by the stroke team under the accepting physician DR. Dennis. Patient was then transported to the ICU briefly for intubation to help protect his airway during transfer to [facility]. I discussed the plan of care with the patient as well as the patient's sisters, brother and mother who were all present at bedside. I answered their questions, and they agreed with the plan. Patient was intubated successfully, transport was arranged, and the patient left the unit at approximately 1:40am. Critical care time greater than 74 minutes, including coordinating patient care , evaluating medical notes and labs, discussing with multiple consults and providers at [facility]. Time also spent with patient and family discussing results of tests and plan of care.
== END 2018-03-05 01:40 | disposition critical access hospital (66) ==
LOC: 3ANU 06:09 → EMEROOARM 06:09 → 3ANU 11:02 → 2NNU 11:07 → ICNU 03-05 00:49
PROVIDERS: ADMIT Internal Medicine; ATTEND Internal Medicine

== ENCOUNTER 2018-03-28 14:41 | Inpatient (IN) ==
--- NOTE | 2018-03-28 14:51 | Emergency Department Note ---
Disposition Clinical Impression: Hyperkalemia, PORFIRIO (acute kidney injury) Disposition: Admitted As Inpatient Condition: Undetermined Time of Disposition: 16:15 General Adult HPI - General Chief complaint: ED Recheck/Abnormal Lab/Rx Stated complaint: Abnormal Labs Time Seen by Provider: 03/28/18 14:45 Source: patient, EMS Mode of arrival: EMS Limitations: physical limitation Nursing Notes Reviewed: Yes Vital Signs Reviewed: Yes - History of Present Illness HPI Narrative: 57-year-old male arrives to the emergency department from [facility] secondary to abnormal labs. The patient was found to have a potassium of 7.2 with a creatinine of 3.1. This is much more elevated than previously evaluated roughly 10 days prior. The patient is an ECF for CVA and subsequent hemiplegia. The patient denies any complaints at this time. EMS states no other acute abdomen amount is. The patient has been noted to have decreased urination per EMS. - Related Data Home Medications Medication Instructions Recorded Confirmed No Known Home Drugs 03/04/18 03/04/18 Allergies Allergy/AdvReac Type Severity Reaction Status Date / Time No Known Allergies Allergy Verified 03/04/18 07:55 All systems ED: reviewed and negative except as stated. Constitutional: Reports: weakness. Denies: fever, chills ENT ED: Reports: dysphagia Cardiovascular: Denies: chest pain Respiratory: Denies: dyspnea Gastrointestinal: Denies: abdominal pain Genitourinary: Reports: frequency Musculoskeletal: Denies: back pain, neck pain Integumentary: Denies: rash Neurological: Denies: headache Past Medical History - Past Medical History Attestation: Yes The following information was validated with the patient. Source: patient, old records reviewed Medical history: Reports: diabetes, hypertension Surgical history: Reports: non-contributory Psychiatric history: Reports: no psych history - Social History Smoking Status: Current every day smoker Alcohol use: Reports: none Drug use: Reports: marijuana Physical Exam - General Limitations: no limitations, other (Difficult to assess due to patient's baseline hemiplegia. No acute changes noted per family in the room as well as E MS.) General appearance: alert, in no apparent distress - Head Head exam: atraumatic, normocephalic, normal inspection - Eye Eye exam: Present: normal appearance, PERRL, EOMI - ENT ENT exam: normal exam, normal oropharynx, mucous membranes moist - Neck Neck exam: Present: normal inspection, full ROM, trachea midline - Chest Chest inspection: Present: normal inspection, symmetric chest wall rise - Respiratory Respiratory exam: Present: normal lung sounds bilaterally - Cardiovascular Cardiovascular exam: Present: regular rate, normal rhythm, normal heart sounds - Abdominal Exam Abdominal exam: Present: soft, Non-Tender. Absent: tenderness, distention, guar ding, rebound, rigidity Course - Consultations Consultation #1: Spoke with Dr. Tiwari in nephrology who requested calcium gluconate be administered, increase the dose of Kayexalate 45 g, perform a renal ultrasound and repeat the patient's potassium at 6 PM tonight. Time: 16:02 Vital Signs Temperature 97.0 F L 03/28/18 14:53 Pulse Rate 78 03/28/18 14:53 Respiratory Rate 18 03/28/18 14:53 Blood Pressure 143/62 03/28/18 14:53 O2 Sat by Pulse Oximetry 80 03/28/18 14:53 Temperature 97.0 F L 03/28/18 14:53 Pulse Rate 78 03/28/18 14:53 Respiratory Rate 18 03/28/18 14:53 Blood Pressure 143/62 03/28/18 14:53 O2 Sat by Pulse Oximetry 80 03/28/18 14:53 Oxygen Delivery Oxygen Delivery Room Air Medical Decision Making - [facility] Narrative Medical decision making narrative: Patient's potassium was elevated at 7.0. He was given albuterol, insulin, glucose, Kayexalate, IV fluids. A Muhammad catheter was placed per recommendation from nephrology. Patient was also recommended to be given calcium gluconate with repeat potassium at 1800. The patient also had a request for retroperitoneal ultrasound per nephrology. The patient will be admitted to the hospitalist at this time for further workup and care. Accepted by Dr. Galindo. - Lab Data Lab results reviewed: Yes I reviewed the patient's lab results. Result diagrams: 03/28/18 15:02 03/28/18 18:11 Lab Results 03/28/18 03/28/18 Range/Units 15:02 15:02 WBC 13.9 H (4.3-11.1) K/mcL RBC 3.73 L (4.19-5.50) M/mcL Hgb 11.0 L (12.9-16.9) g/dL Hct 34.2 L (37.5-50.1) % MCV 91.7 (83.0-100.0) fL MCH 29.5 (28.0-33.3) pg MCHC 32.2 (31.6-35.5) g/dL RDW 13.3 (11.5-14.5) % Plt Count 472 H (140-400) K/mcL MPV 10.8 (9.4-12.4) fL Immature Gran % 0.4 (0-4) % Seg Neutrophils % 76.0 % Lymphocytes % 15.9 % Monocytes % 7.3 % Eosinophils % 0.0 % Basophils % 0.4 % Neutrophils # 10.5 H (1.6-8.9) K/mcL Lymphocytes # 2.2 (0.6-4.6) K/mcL Monocytes # 1.0 (0.0-1.3) K/mcL Eosinophils # 0.0 (0.0-0.6) K/mcL Basophils # 0.1 (0.0-0.2) K/mcL Sodium 134 L (136-145) mEq/L Potassium 7.0 H* (3.5-5.1) mEq/L Chloride 103 (98-107) mEq/L Carbon Dioxide 22 L (23-29) mEq/L BUN 88 H (6-20) mg/dL Creatinine 3.10 H (0.70-1.30) mg/dL Est GFR ( Amer) 25 L (> 60) Est GFR (Non-Af Amer) 21 L (> 60) BUN/Creatinine Ratio 28 H (6-26) Glucose 128 H (70-105) mg/dL Calculated Osmolality 307 H (280-300) Calcium 9.3 (8.6-10.3) mg/dL - EKG Data EKG #1 EKG attestation: Yes I reviewed and interpreted this EKG. EKG results narrative: Heart rate 76 beats for minute. Normal sinus rhythm. No ST elevation or ST depression noted. There is some peaking of T waves noted throughout. Attestation Statement - Attestation Attestation: I examined this patient and my medical decision-making was reviewed with the Resident Physician. I agree with the documented findings, disposition and treatment plan as described except to the extent set forth below. Findings consistent with hyperkalemia. No evidence of EKG changes this time. Patient received calcium, dextrose, albuterol, insulin, will admit for further management, nephrology consult at. Suspect hyperkalemia related to underlying acute kidney injury. I spent greater than 35 minutes of critical care time resuscitating this acutely ill patient suffering from hyperkalemia. This was excluding billable pr ocedures.
[2018-03-28 15:24] LABS: Basophils # 0.1 K/mcL (0.0-0.2); Basophils % 0.4 %; Hematocrit 34.2 % (37.5-50.1); Immature Granulocytes % 0.4 % (0-4); Lymphocytes # 2.2 K/mcL (0.6-4.6); Lymphocytes % 15.9 %; Mean Corpuscular HGB Conc 32.2 g/dL (31.6-35.5); Mean Corpuscular Hemoglobin 29.5 pg (28.0-33.3); Mean Corpuscular Volume 91.7 fL (83.0-100.0); Mean Platelet Volume 10.8 fL (9.4-12.4); Monocytes % 7.3 %; Neutrophils # 10.5 K/mcL (1.6-8.9); Platelet Count 472 K/mcL (140-400); Red Blood Count 3.73 M/mcL (4.19-5.50); Red Cell Distribution Width 13.3 % (11.5-14.5)
[2018-03-28] MEDS ORDERED: *HR* Dextrose 50 % in Water (Syg) 50 ML SYRINGE IVP ONE (15:48)
[2018-03-28] MEDS ORDERED: Albuterol 2.5 MG/3 ML NEBULIZER IH ONE (15:48)
[2018-03-28] MEDS ORDERED: Insulin Human Regular 10 UNIT in 0.9 % Sodium Chloride 10 ML IV ONE (15:48)
[2018-03-28 15:49] LABS: Calcium 9.3 mg/dL (8.6-10.3)
[2018-03-28] MEDS ORDERED: 0.9 % Sodium Chloride 1,000 ML IVC ONE (15:51)
[2018-03-28] MEDS ORDERED: Calcium Gluconate 2,000 MG in 0.9 % Sodium Chloride 100 ML IVPB ONE (16:00)
[2018-03-28] MEDS ORDERED: Naloxone 0.4 MG/ML INJ IVP PRN (17:57)
[2018-03-28] MEDS ORDERED: Furosemide 20 MG/2 ML VIAL IVP ONE (18:04)
[2018-03-28] MEDS ORDERED: *HR* Dextrose 50 % in Water (Syg) 50 ML SYRINGE IVP PRN (18:12)
[2018-03-28] MEDS ORDERED: D5% in Water 1,000 ML IVC PRN (18:12)
[2018-03-28] MEDS ORDERED: Dextrose Gel 15 GM/37.5 ML TUBE PO PRN ×2 (18:12)
--- NOTE | 2018-03-28 18:21 | Internal Med History&Physical ---
Addendum entered and electronically signed by Aamir Larson 03/28/18 23:33: Pt has right-sided weakness and hemiplegia instead of left sided. Original Note: Date of Encounter: 03/28/18 Time of Encounter: 18:14 Internal Medicine - H&P: HPI Admitted From: Long-term Nursing Facility Plans for Post Hospital Care: Transfer Long Term Facility History of present illness: Mr. Cantrell is a 57 year old male, arrives to the emergency department from [facility] secondary to abnormal labs. The patient was found to have a potassium of 7.2 with a creatinine of 3.1. This is much more elevated than previously evaluated roughly one month. Patient recently had a stroke with left hemiplegia and was discharged to [facility] for rehabilitation. He has a Hx of CKD and regularly f/u with Dr. Michelle. The patient denies any complaints at this time. The patient has been noted to have decreased urination per family. Repeated labs at the ED showed potassium 7.0, creatinine 3.1. Patient received 1 dose of Kayexalate, insulin IV, calcium, and albuterol. Nephrology was consulted. Patient will be admitted as observation for further evaluation and management. Past Med Surg Social Fam HX - Past Medical History Medical history: diabetes, hypertension Psychiatric history: no psych history - Past Surgical History Surgical History: non-contributory - Social History Smoking Status: Current every day smoker Alcohol use: none Drug use: marijuana Internal Medicine - H&P: Meds No Known Home Drugs 03/04/18 [History] Allergy/AdvReac Type Severity Reaction Status Date / Time No Known Allergies Allergy Verified 03/04/18 07:55 All Systems PM: A 10-system review of systems was performed and is negative for pertinent findings except as documented above in the HPI. Review of systems: REVIEW OF SYSTEMS: CONSTITUTIONAL: No weight loss, fever, chills, weakness or fatigue. HEENT: Eyes: No visual loss, blurred vision, double vision or yellow sclerae. Ears, Nose, Throat: No hearing loss, sneezing, congestion, runny nose or sore throat. SKIN: No rash or itching. CARDIOVASCULAR: No chest pain, chest pressure or chest discomfort. No palpitations or edema. RESPIRATORY: No shortness of breath, cough or sputum. GASTROINTESTINAL: No anorexia, nausea, vomiting or diarrhea. No abdominal pain or blood. GENITOURINARY: see HPI. NEUROLOGICAL: see HPI. MUSCULOSKELETAL: No muscle, back pain, joint pain or stiffness. HEMATOLOGIC: No anemia, bleeding or bruising. LYMPHATICS: No enlarged nodes. No history of splenectomy. PSYCHIATRIC: No history of depression or anxiety. ENDOCRINOLOGIC: No reports of sweating, cold or heat intolerance. . - Constitutional Vitals: Temp Pulse Resp BP Pulse Ox 97.0 F L 95 18 140/74 98 03/28/18 14:53 03/28/18 16:42 03/28/18 16:42 03/28/18 16:42 03/28/18 16:42 General appearance: Present: cooperative, A&O X 2 Exam: PHYSICAL EXAMINATION: GENERAL APPEARANCE: The patient is alert, oriented and in no acute distress. HEENT: Head is normocephalic. The sinuses are nontender. Pupils are equal and reactive. The nares are patent. Oropharynx clear without lesions. NECK: Supple without lymphadenopathy. HEART: Regular rate and rhythm. LUNGS: No crackles or wheezes are heard. ABDOMEN: Soft, nontender, nondistended with good bowel sounds heard. Inguinal area is normal. EXTREMITIES: Without cyanosis, clubbing or edema. NEUROLOGICAL: left hemiplegia noted. labile emotion with frequent laughing and tearing. SKIN: Warm and dry without any rash. Internal Med - H&P Results - Labs CBC & Chem 7: 03/28/18 15:02 03/28/18 15:02 Labs: Short CBC 03/28/18 Range/Units 15:02 WBC 13.9 H (4.3-11.1) K/mcL Hgb 11.0 L (12.9-16.9) g/dL Hct 34.2 L (37.5-50.1) % Plt Count 472 H (140-400) K/mcL Neutrophils # 10.5 H (1.6-8.9) K/mcL BMP 03/28/18 15:02 Sodium 134 L Potassium 7.0 H* Chloride 103 Carbon Dioxide 22 L BUN 88 H Creatinine 3.10 H Glucose 128 H Calcium 9.3 - Assessment and plan (1) Hyperkalemia Current Visit: Yes Status: Acute Assessment and plan: 57-year-old male with recent history of CVA and a CKD is admitted with hyperkalemia and worsening renal function. He recently had a CVA with left-sided hemiparesis and was discharged to [facility] for rehabilitation. Labs today showed potassium 7.0. - Patient received IVF bolus, 1 dose of Kayexalate, IV calcium, IV insulin, and albuterol inhaler. will give one dose of IV Lasix. Will repeat BMP. - Lab revealed worsening renal function. Etiology undetermined. Family reported patient had decreased urine output recently. Obstructive uropathy was suspected, nephrology was consulted, renal ultrasound was ordered. Muhammad was ordered. - Continue tele monitoring. - monitoring labs Q6h and continue treatment if K>5.0. (2) Acute on chronic renal failure Current Visit: Yes Status: Acute Assessment and plan: Hx of CKD and f/u with Dr. Michelle. Worsening renal function, unknown etiology. Renal US ordered. Renal consult. Qualifiers: Acute renal failure type: unspecified Chronic kidney disease stage: stage 3 (moderate) Qualified Code(s): N17.9 - Acute kidney failure, unspecified; N18.3 - Chronic kidney disease, stage 3 (moderate) (3) Cerebrovascular accident Current Visit: No Status: Chronic Assessment and plan: Continue home meds with asa. Continue NPO and Tube feeding. PT/OT. Qualifiers: CVA mechanism: unspecified Qualified Code(s): I63.9 - Cerebral infarction, unspecified (4) Diabetes Current Visit: No Status: Chronic Assessment and plan: Insulin sliding scale, will resume home meds once reconciled. 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 Qualifiers: Hypertension type: essential hypertension Qualified Code(s): I10 - Essential (primary) hypertension (6) DVT prophylaxis Current Visit: Yes Status: Acute Assessment and plan: Heparin sq. (7) Dysphagia Current Visit: No Status: Chronic Assessment and plan: Continue TF, dietary consult. Qualifiers: Dysphagia type: unspecified Qualified Code(s): R13.10 - Dysphagia, unspecified - Time Spent With Patient Total time spent is greater than 50% in coordination of care (as documented) at patient's floor/unit and/or counseling patient: Greater than 35 minutes
[2018-03-28 18:49] LABS: Calcium 9.7 mg/dL (8.6-10.3); Potassium 5.6 mEq/L (3.5-5.1)
[2018-03-28] MEDS: 0.9 % Sodium Chloride 1,000 ML IVC SCH (21:48)
[2018-03-28] MEDS ORDERED: traZODone 50 MG TABLET PO PRN (23:49)
[2018-03-29] MEDS: Insulin LISPRO 300 UNITS/3 ML VIAL SQ SCH ×4 (02:03→18:03)
[2018-03-29] MEDS: Melatonin 3 MG TABLET PO SCH ×2 (02:03→19:42)
[2018-03-29] MEDS: Ipratropium/Albuterol Neb 3 ML IH SCH ×4 (03:06→21:54)
[2018-03-29] MEDS: 0.9 % Sodium Chloride 1,000 ML IVC SCH ×3 (04:00→19:41)
[2018-03-29 04:34] LABS: Basophils # 0.1 K/mcL (0.0-0.2); Basophils % 0.4 %; Eosinophils # 0.6 K/mcL (0.0-0.6); Eosinophils % 4.8 %; Hematocrit 28.6 % (37.5-50.1); Immature Granulocytes % 0.5 % (0-4); Lymphocytes # 1.8 K/mcL (0.6-4.6); Lymphocytes % 15.1 %; Mean Corpuscular HGB Conc 31.8 g/dL (31.6-35.5); Mean Corpuscular Hemoglobin 29.4 pg (28.0-33.3); Mean Corpuscular Volume 92.6 fL (83.0-100.0); Mean Platelet Volume 10.7 fL (9.4-12.4); Monocytes # 1.1 K/mcL (0.0-1.3); Monocytes % 8.8 %; Neutrophils # 8.6 K/mcL (1.6-8.9); Platelet Count 392 K/mcL (140-400); Red Blood Count 3.09 M/mcL (4.19-5.50); Red Cell Distribution Width 13.5 % (11.5-14.5); Segmented Neutrophils % 70.4 %
[2018-03-29 04:39] LABS: Hemoglobin 9.1 g/dL (12.9-16.9)
[2018-03-29 04:54] LABS: Calcium 9.1 mg/dL (8.6-10.3); Potassium 5.3 mEq/L (3.5-5.1)
[2018-03-29] MEDS: *HR* Heparin 5,000 UNIT/ML VIAL SQ SCH ×2 (06:14→16:07)
[2018-03-29] MEDS ORDERED: NON-FORMULARY MEDICATION 1 EACH EACH (Insulin Glargine [Lantus] 20 UNIT) SQ SCH (09:00)
--- NOTE | 2018-03-29 09:19 | Nephrology Consult Note ---
Addendum entered and electronically signed by Gaurang Tiwari MD 03/29/18 21:40: I examined this patient and discussed the medical decision-making with CLARISA Galicia. I agree with the documented findings, disposition and treatment plan as described except to the extent set forth below . Hyperkalemia improving along with an improvement in his renal function. No acute need for hemodialysis. Original Note: Date of Encounter: 03/29/18 Time of Encounter: 09:08 Assessment and Plan (1) PORFIRIO (acute kidney injury) Current Visit: Yes Status: Acute Unsure of baseline. Initial Scr was 3. Avoid nephrotoxins and renal dose. Strict I/O. Serum and Urine studies ordered. Retroperitoneal US completed and was normal. (2) Hyperkalemia Current Visit: Yes Status: Acute Initial K was 7. Repeat was 5.6 and 5.3 after treatment. (3) Cerebrovascular accident Current Visit: No Status: Chronic Hx of. Qualifiers: CVA mechanism: unspecified Qualified Code(s): I63.9 - Cerebral infarction, unspecified (4) Dysphagia Current Visit: No Status: Chronic Has a G tube with tube feed infusing. Qualifiers: Dysphagia type: unspecified Qualified Code(s): R13.10 - Dysphagia, unspeci fied History of Present Illness - Reason for Consult Consult date: 03/29/18 Acute Kidney Injury, Chronic Kidney Disease Requesting physician: Erasmo Camarena - Chief Complaint abnormal labs - History of Present Illness Mr. Cantrell is a 57 year old male who resides in [facility]. PMH: DM, HTN, CVA and dysphasia. He was transferred to ED from [facility] for abnormal labs. Initial K was 7 and SCR was 3. Unsure of his baseline, labs are limited in [facility] and patient has not seen Dr. Michelle in the past per [facility]. PORFIRIO and CKD workup has been ordered. Pt is able to communicate, but ROS is limited due to dysphasia. Pt does report he was feeling "fine" at the [facility] no contributing symptoms. He is a full code. Denies any tobacco, etoh or illicit drug use. Unable to ask about FH. Past Med Surg Social Fam HX - Past Medical History Medical history: diabetes, hypertension Psychiatric history: no psych history - Past Surgical History Surgical History: non-contributory Additional surgical history: feeding tube - Social History Smoking Status: Current every day smoker Alcohol use: none Drug use: marijuana Medications and Allergies Acetaminophen [Non-Aspirin] 650 mg PO Q4H PRN 03/28/18 [History] Amlodipine Besylate 10 mg PO DAILY 03/28/18 [History] Aspirin [Lo-Dose Aspirin EC] 81 mg PO DAILY 03/28/18 [History] Atorvastatin Calcium [Lipitor] 80 mg PO HS 03/28/18 [History] Docusate [Colace] 100 mg PO BID 03/28/18 [History] Insulin Glargine [Lantus] 20 unit SQ DAILY 03/28/18 [History] Insulin Human Regular [HumuLIN R] 2 - 12 unit SQ TID 03/28/18 [History] Ipratropium/Albuterol Neb [Duoneb] 3 ml IH Q6HR 03/28/18 [History] Melatonin 1 mg PO HS 03/28/18 [History] Omeprazole 40 mg PO DAILY 03/28/18 [History] Sennosides/Docusate Sodium [Senna Plus] 1 each PO DAILY 03/28/18 [History] Sertraline [Zoloft] 25 mg PO DAILY 03/28/18 [History] Sodium Bicarbonate 650 mg PO TID 03/28/18 [History] hydrALAZINE [HydrALAZINE] 75 mg PO TID 03/28/18 [History] traZODone [TraZODone] 25 mg PO HS PRN 03/28/18 [History] Allergy/AdvReac Type Severity Reaction Status Date / Time No Known Allergies Allergy Verified 03/04/18 07:55 Review of Systems ROS unobtainable: other (dysphasia ) All Systems review (narrative): The remainder of the systems are negative. Constitutional: no chills, no fatigue, no fever(s) Cardiovascular: no chest pain, no dyspnea Respiratory: no dyspnea Gastrointestinal: no abdominal pain, no change in bowel habits, no diarrhea, no nausea, no vomiting Exam - Vital Signs Vital signs: Initial Vital Signs Temp Pulse Resp BP Pulse Ox 97.0 F L 78 18 143/62 80 03/28/18 14:53 03/28/18 14:53 03/28/18 14:53 03/28/18 14:53 03/28/18 14:53 Vital Signs - Last 8 Hours Temp Pulse Resp BP Pulse Ox 03/29/18 06:39 98.8 F 105 16 147/69 95 03/29/18 04:50 98.2 F 101 16 133/64 94 03/29/18 03:06 16 95 Intake and Output 03/28/18 03/29/18 03/29/18 23:59 07:59 15:59 Intake Total 50 / 50 Output Total 1800 / 1800 Balance 50 / 50 -1800 / -1800 Intake: Oral 0 / 0 Free Water Intake Amount 50 / 50 Output: Catheter 1800 / 1800 Other: Stool Size Smear # Voids 1 # Urine Diapers 1 Weight 80.5 kg 83 kg Blood Glucose* 169 184 Patient Weight 03/29/18 23:59 Weight 83 kg - General Appearance General appearance: fatigue, frail EENT: ATNC, hearing intact, vision intact Neck: supple Respiratory: clear Cardiology: no edema, normal S1, normal S2 Gastrointestinal: normoactive bowel sounds, no tenderness, no guarding Integumentary: no rash, warm and dry Neurologic: alert and oriented x3 Psychiatric: mood/affect appropriate, cooperative Results - Lab Results 03/29/18 04:18 03/29/18 04:18 Most recent lab results Calcium 9.1 mg/dL (8.6-10.3) 03/29/18 04:18 Consult Discharge Plan - Plan Referrals: NONE,PCP [Primary Care Provider] -
[2018-03-29] MEDS: amLODIPine 5 MG TABLET PO SCH (09:23)
[2018-03-29] MEDS: Aspirin 81 MG TAB.CHEW PO SCH (09:23)
[2018-03-29] MEDS: Acetaminophen 325 MG TABLET PO PRN (09:23)
[2018-03-29] MEDS: hydrALAZINE 25 MG TABLET PO SCH ×3 (09:24→19:42)
[2018-03-29] MEDS: Docusate Oral Soln 100 MG/10 ML UDC PO SCH ×2 (11:07→19:43)
--- NOTE | 2018-03-29 11:45 | Internal Med Progress Note ---
Hospitalist Progress Note - Encounter Date of Encounter: 03/29/18 Time of Encounter: 11:43 - Subjective Interval History: Pt denies fever or chills. Denies nausea or vomiting. Denies constipation but reports loose stool which is due to taking Kayexalate. - Exam Vitals: Temp Pulse Resp BP Pulse Ox 98.6 F 104 16 134/70 95 03/29/18 10:36 03/29/18 10:36 03/29/18 10:36 03/29/18 10:36 03/29/18 10:36 Exam: PHYSICAL EXAMINATION: GENERAL APPEARANCE: The patient is alert, oriented and in no acute distress. HEENT: Head is normocephalic. The sinuses are nontender. Pupils are equal and reactive. The nares are patent. Oropharynx clear without lesions. NECK: Supple without lymphadenopathy. HEART: Regular rate and rhythm. LUNGS: No crackles or wheezes are heard. ABDOMEN: Soft, nontender, mildly distended with good bowel sounds heard. Inguinal area is normal. EXTREMITIES: Without cyanosis, clubbing or edema. NEUROLOGICAL: left hemiplegia noted. labile emotion with frequent laughing and tearing. SKIN: Warm and dry without any rash. - Assessment and Plan (1) Acute on chronic renal failure Current Visit: Yes Status: Acute Assessment and Plan: Worsening renal function. Cr 2.94 on admission down to 2.85. K 5.6 on admission down to 5.3. Hx of CKD and f/u with Dr. Michelle. Renal US normal. Renal consulting and recommends strict I and O's and avoid nephrotoxins. (2) Hyperkalemia Current Visit: Yes Status: Acute Assessment and Plan: 57-year-old male with recent history of CVA and a CKD is admitted with hyperkalemia and worsening renal function. He recently had a CVA with left-sided hemiparesis and was discharged to [facility] for rehabilitation. Labs today showed potassium 7.0. - Patient received IVF bolus, has been given a couple doses of Kayexalate, IV calcium, IV insulin, and albuterol inhaler. - He was given IV Lasix x one. Will repeat BMP in am. Repeat K today is 5.3. - Lab revealed worsening renal function. Etiology undetermined. Family reported patient had decreased urine output recently. obstructive uropathy was suspected, nephrology was consulted, renal ultrasound was ordered and negative. Muhammad in place. - Continue tele monitoring. - monitoring labs Q6h and continue treatment if K>5.0. Renal ultrasound US/US retroperitoneal limited IMPRESSION: Normal sonographic appearance of the kidneys. (3) Diabetes Current Visit: No Status: Chronic Assessment and Plan: Insulin sliding scale and basal insulin. Lantus 20 units SQ QD. (4) HTN (hypertension) Current Visit: No Status: Chronic Assessment and Plan: Continue monitoring BP. On norvasc and hydralazine (5) Dysphagia Current Visit: No Status: Chronic Assessment and Plan: Continue TF, dietary consult. (6) History of stroke Current Visit: Yes Status: Acute Assessment and Plan: Continue home meds with ASA. Continue NPO and Tube feeding. PT/OT. DVT Prophylaxis: Heparin - Summary of Assessment and Plan Summary of Assessment and Plan: Mr. Cantrell is a 57 year old male who resides in [facility]. PMH: DM, HTN, CVA and dysphasia. He was transferred to ED from [facility] for abnormal labs. Initial K was 7 and SCR was 3. Unsure of his baseline, labs are limited in [facility] and patient has not seen Dr. Michelle in the past per [facility]. PORFIRIO and CKD workup has been ordered. Pt is able to communicate, but ROS is limited due to dysphasia. Pt does report he was feeling "fine" at the [facility] no contributing symptoms. Denies any tobacco, ETOH or illicit drug use. CODE STATUS: FULL - Time Spent with Patient Total time spent is greater than 50% in coordination of care (as documented) at patient's floor/unit and/or counseling patient: less than 15 minutes Plan of Care Discussed with: patient Internal Medicine: Result - Labs CBC & Chem 7: 03/29/18 04:18 03/29/18 04:18 Labs: Short CBC 03/28/18 03/29/18 Range/Units 15:02 04:18 WBC 13.9 H 12.2 H (4.3-11.1) K/mcL Hgb 11.0 L 9.1 L D (12.9-16.9) g/dL Hct 34.2 L 28.6 L (37.5-50.1) % Plt Count 472 H 392 (140-400) K/mcL Neutrophils # 10.5 H 8.6 (1.6-8.9) K/mcL BMP 03/28/18 03/28/18 03/29/18 15:02 18:11 04:18 Sodium 134 L 136 140 Potassium 7.0 H* 5.6 H 5.3 H Chloride 103 108 H 108 H Carbon Dioxide 22 L 19 L 25 BUN 88 H 92 H 84 H Creatinine 3.10 H 2.94 H 2.85 H Glucose 128 H 144 H 152 H Calcium 9.3 9.7 9.1 - Impressions Impressions Retroperitoneum Ultrasound 03/28/18 15:59 IMPRESSION: Normal sonographic appearance of the kidneys. 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
[2018-03-29] MEDS: Insulin DETEMIR 100 UNIT/ML X5UNITS SQ SCH (19:59)
[2018-03-29] MEDS ORDERED: MELATONIN 1 MG PO SCH (21:00)
[2018-03-30] MEDS: Insulin LISPRO 300 UNITS/3 ML VIAL SQ SCH ×4 (00:22→17:46)
[2018-03-30] MEDS: Ipratropium/Albuterol Neb 3 ML IH SCH ×2 (04:25→10:32)
[2018-03-30] MEDS: 0.9 % Sodium Chloride 1,000 ML IVC SCH ×2 (05:39→15:45)
[2018-03-30] MEDS: *HR* Heparin 5,000 UNIT/ML VIAL SQ SCH ×2 (05:41→15:45)
[2018-03-30 06:04] LABS: Uric Acid 4.7 mg/dL (2.3-7.6)
[2018-03-30 06:28] LABS: Hepatitis B Surface Antigen Nonreactive (Nonreactive)
--- NOTE | 2018-03-30 07:26 | Nephrology Progress Note ---
Date of Encounter: 03/30/18 Time of Encounter: 07:24 - Assessment and Plan (1) PORFIRIO (acute kidney injury) Current Visit: Yes Status: Acute Unsure of baseline. Initial Scr was 3. Avoid nephrotoxins and renal dose. Strict I/O. Serum and Urine studies ordered. Retroperitoneal US completed and was normal. (2) Diarrhea Current Visit: Yes Status: Acute Will defer management to primary team. Qualifiers: Qualified Code(s): R19.7 - Diarrhea, unspecified (3) Cerebrovascular accident Current Visit: No Status: Chronic Hx of. Qualifiers: CVA mechanism: unspecified Qualified Code(s): I63.9 - Cerebral infarction, unspecified (4) Hyperkalemia Current Visit: Yes Status: Acute Initial K was 7. Repeat was 5.6 and 5.3 after treatment. (5) Dysphagia Current Visit: No Status: Chronic Has a G tube with tube feed infusing. Qualifiers: Dysphagia type: unspecified Qualified Code(s): R13.10 - Dysphagia, unspecified Subjective Principal diagnosis: PORFIRIO Interval history: Patient complains that he had diarrhea all night. His ROS otherwise was stable. Objective - Vital Signs Vital signs: Vital Signs Temp Pulse Resp BP Pulse Ox 03/30/18 07:11 98.6 F 109 15 165/71 94 03/30/18 04:26 18 96 03/30/18 03:59 98.7 F 109 17 161/71 95 03/30/18 00:16 98.3 F 117 17 122/65 95 03/29/18 21:55 18 95 03/29/18 19:25 98.4 F 109 18 169/68 96 03/29/18 15:53 16 97 03/29/18 15:21 98.8 F 105 16 155/65 94 03/29/18 10:36 98.6 F 104 16 134/70 95 03/29/18 10:22 16 95 Intake and Output 03/29/18 03/29/18 03/30/18 15:59 23:59 07:59 Intake Total 1100 / 1100 1185 / 1185 1410 / 1410 Output Total 400 / 400 550 / 550 1050 / 1050 Balance 700 / 700 635 / 635 360 / 360 Intake: IV Fluids 1000 / 1000 1000 / 1000 1000 / 1000 0.9 % Sodium Chloride 1,000 ML 1000 / 1000 1000 / 1000 1000 / 1000 @ 100 mls/hr IVC .Q10H [facility] Rx#: [id number] Tube Feeding 135 / 135 360 / 360 Free Water 0 / 0 50 / 50 Free Water Intake Amount 100 / 100 50 / 50 Output: Catheter 400 / 400 550 / 550 1050 / 1050 Other: Stool Size Small Moderate Stool Consistency loose loose soft Stool Characteristics Normal for Patient Stool Color Brown Brown # Bowel Movement Diapers 1 1 Weight 81.1 kg Blood Glucose* 159 176 160 Patient Weight 03/30/18 23:59 Weight 81.1 kg - General Appearance General appearance: Present: well-developed, well-nourished EENT: Present: ATNC Additional Comments: Resp unlabored. Cardiology: Present: regular rate Integumentary: Present: warm and dry Neurologic: Present: alert and oriented x3 Musculoskeletal: Present: no cyanosis Psychiatric: Present: mood/affect appropriate - Lab 03/29/18 04:18 03/29/18 04:18 Most recent lab results Calcium 9.1 mg/dL (8.6-10.3) 03/29/18 04:18 Consult Discharge Plan - Plan Referrals: NONE,PCP [Primary Care Provider] -
--- NOTE | 2018-03-30 08:47 | Internal Med Progress Note ---
Hospitalist Progress Note - Encounter Date of Encounter: 03/30/18 Time of Encounter: 08:47 - Subjective Interval History: Pt denies fever or chills. Denies nausea or vomiting. Denies constipation but reports loose stool which is due to taking Kayexalate. - Exam Vitals: Temp Pulse Resp BP Pulse Ox 98.6 F 109 15 165/71 94 03/30/18 07:11 03/30/18 07:11 03/30/18 07:11 03/30/18 07:11 03/30/18 07:11 Exam: PHYSICAL EXAMINATION: GENERAL APPEARANCE: The patient is alert, oriented and in no acute distress. HEENT: Head is normocephalic. The sinuses are nontender. Pupils are equal and reactive. The nares are patent. Oropharynx clear without lesions. NECK: Supple without lymphadenopathy. HEART: Regular rate and rhythm. LUNGS: No crackles or wheezes are heard. ABDOMEN: Soft, nontender, mildly distended with good bowel sounds heard. Inguinal area is normal. EXTREMITIES: Without cyanosis, clubbing or edema. NEUROLOGICAL: left hemiplegia noted. labile emotion with frequent laughing and tearing. SKIN: Warm and dry without any rash. - Assessment and Plan (1) Acute on chronic renal failure Current Visit: Yes Status: Acute Assessment and Plan: Worsening renal function on admission Cr 2.94. Cr down to 2.85 to 2.07. K 5.6 on admission down to 4.2. Hx of CKD and f/u with Dr. Michelle. Renal US normal. Renal consulting and recommends strict I and O's and avoid nephrotoxins. Awaiting further recommendations from nephrology (2) Hyperkalemia Current Visit: Yes Status: Acute Assessment and Plan: 57-year-old male with recent history of CVA and a CKD is admitted with hyperkalemia and worsening renal function. He recently had a CVA with left-sided hemiparesis and was discharged to [facility] for rehabilitation. Labs today showed potassium 7.0. - Lab revealed worsening renal function. Etiology undetermined. Family reported patient had decreased urine output recently. obstructive uropathy was suspected, nephrology was consulted, renal ultrasound was ordered and negative. Muhammad in place. - Patient received IVF bolus, has been given a couple doses of Kayexalate, IV calcium, IV insulin, and albuterol inhaler. - He was given IV Lasix x one. Repeat K today is 5.3 down to 4.7 today. - Continue tele monitoring. - monitoring labs Q6h and continue treatment if K>5.0. Renal ultrasound US/US retroperitoneal limited IMPRESSION: Normal sonographic appearance of the kidneys. (3) Diabetes Current Visit: No Status: Chronic Assessment and Plan: Insulin sliding scale and basal insulin. Lantus 20 units SQ QD. (4) HTN (hypertension) Current Visit: No Status: Chronic Assessment and Plan: Continue monitoring BP. On norvasc and hydralazine (5) Dysphagia Current Visit: No Status: Chronic Assessment and Plan: Continue TF, dietary consult. (6) History of stroke Current Visit: Yes Status: Acute Assessment and Plan: Continue home meds with ASA. Continue NPO and Tube feeding. PT/OT. DVT Prophylaxis: Heparin - Summary of Assessment and Plan Summary of Assessment and Plan: Mr. Cantrell is a 57 year old male who resides in [facility]. PMH: DM, HTN, CVA and dysphasia. He was transferred to ED from [facility] for abnormal labs. Initial K was 7 and SCR was 3. Unsure of his baseline, labs are limited in [facility] and patient has not seen Dr. Michelle in the past per W. PORFIRIO and CKD workup has been ordered. Pt is able to communicate, but ROS is limited due to dysphasia. Pt does report he was feeling "fine" at the [facility] no contributing symptoms. Denies any tobacco, ETOH or illicit drug use. CODE STATUS: FULL - Time Spent with Patient Total time spent is greater than 50% in coordination of care (as documented) at patient's floor/unit and/or counseling patient: Plan of Care Discussed with: patient Internal Medicine: Result - Labs CBC & Chem 7: 03/29/18 04:18 03/30/18 05:29 Consult Discharge Plan - Plan Referrals: NONE,PCP [Primary Care Provider] - (1) Acute on chronic renal failure Qualifiers: Acute renal failure type: unspecified Chronic kidney disease stage: stage 3 (moderate) Qualified Code(s): N17.9 - Acute kidney failure, unspecified; N18.3 - Chronic kidney disease, stage 3 (moderate) (3) Diabetes Qualifiers: Diabetes mellitus type: type 2 Diabetes mellitus intermediate insulin use: unspecified cask maker insulin use status Diabetes mellitus complication status: with unspecified complications Qualified Code(s): E11.8 - Type 2 diabetes mellitus with unspecified complications (4) HTN (hypertension) Qualifiers: Hypertension type: essential hypertension Qualified Code(s): I10 - Essential (primary) hypertension (5) Dysphagia Qualifiers: Dysphagia type: unspecified Qualified Code(s): R13.10 - Dysphagia, unspecif ied
[2018-03-30] MEDS: amLODIPine 5 MG TABLET PO SCH (09:13)
[2018-03-30] MEDS: hydrALAZINE 25 MG TABLET PO SCH ×3 (09:13→22:20)
[2018-03-30] MEDS: Aspirin 81 MG TAB.CHEW PO SCH (09:13)
[2018-03-30] MEDS: Docusate Oral Soln 100 MG/10 ML UDC PO SCH ×2 (09:13→22:17)
[2018-03-30] MEDS ORDERED: *HR* LORazepam 0.5 MG TABLET PO ONE (09:45)
[2018-03-30 11:43] LABS: Albumin 2.9 g/dL (3.5-5.7); Calcium 8.2 mg/dL (8.6-10.3); Phosphorous 4.3 mg/dL (2.7-4.5); Potassium 4.2 mEq/L (3.5-5.1)
--- NOTE | 2018-03-30 12:13 | Electrocardiograph Report ---
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
[2018-03-30 18:15] LABS: Bilirubin,Urine Negative (Negative); Blood,Urine Small (Negative); Clarity,Urine Clear (Clear); Color,Urine Yellow (Yellow); Glucose,Urine (UA) Normal (Normal); Ketones,Urine Negative (Negative); Leukocyte Esterase,Urine Negative (Negative); Nitrite,Urine Negative (Negative); PH,Urine 7.5 pH Units (5.0-8.0); Protein,Urine 100 mg/dL (Neg-Trace); Specific Gravity,Urine 1.013 (1.010-1.025); Urobilinogen,Urine Normal (Normal)
[2018-03-30 18:18] LABS: Bacteria,Urine None Seen per hpf (None-Few); Hyaline Casts,Urine None Seen per lpf (None-Few); RBC,Urine 50-100 per hpf (0-3); Squamous Epithelial Cell,Urine Few per lpf (None-Few); WBC,Urine 0-3 per hpf (0-3)
[2018-03-30 18:49] LABS: Protein/Creatinine Ratio,Urine 1.77 mg/mg (0.00-0.20)
[2018-03-30] MEDS: Melatonin 3 MG TABLET PO SCH (22:20)
[2018-03-30] MEDS: Insulin DETEMIR 100 UNIT/ML X5UNITS SQ SCH (22:34)
[2018-03-31] MEDS: Insulin LISPRO 300 UNITS/3 ML VIAL SQ SCH ×4 (00:58→18:56)
[2018-03-31] MEDS: 0.9 % Sodium Chloride 1,000 ML IVC SCH ×2 (01:54→06:27)
[2018-03-31] MEDS ORDERED: Ipratropium/Albuterol Neb 3 ML IH PRN (02:06)
[2018-03-31] MEDS: *HR* Heparin 5,000 UNIT/ML VIAL SQ SCH ×2 (06:01→18:56)
[2018-03-31 07:20] LABS: Albumin 2.9 g/dL (3.5-5.7); Calcium 8.6 mg/dL (8.6-10.3); Phosphorous 2.8 mg/dL (2.7-4.5); Potassium 4.2 mEq/L (3.5-5.1)
--- NOTE | 2018-03-31 07:20 | Nephrology Progress Note ---
Date of Encounter: 03/31/18 Time of Encounter: 07:18 - Assessment and Plan (1) PORFIRIO (acute kidney injury) Current Visit: Yes Status: Acute Unsure of baseline. Initial Scr was 3. Avoid nephrotoxins and renal dose. Strict I/O. Serum and Urine studies ordered. Retroperitoneal US completed and was normal. Renal function is improving. (2) Diarrhea Current Visit: Yes Status: Acute Will defer management to primary team. Qualifiers: Qualified Code(s): R19.7 - Diarrhea, unspecified (3) Cerebrovascular accident Current Visit: No Status: Chronic Per primary team Qualifiers: CVA mechanism: unspecified Qualified Code(s): I63.9 - Cerebral infarction, unspecified (4) Hyperkalemia Current Visit: Yes Status: Acute (5) Dysphagia Current Visit: No Status: Chronic Qualifiers: Dysphagia type: unspecified Qualified Code(s): R13.10 - Dysphagia, unspecified Subjective Principal diagnosis: PORFIRIO Interval history: Patient complains that he had diarrhea all night. His ROS otherwise was stable. Difficult to understand secondary to his speech. Objective - Vital Signs Vital signs: Vital Signs Temp Pulse Resp BP Pulse Ox 03/31/18 04:02 97.9 F 95 18 169/72 94 03/30/18 23:38 97.5 F L 100 18 169/74 94 03/30/18 18:54 98.6 F 112 19 150/66 95 03/30/18 16:50 98.2 F 112 15 155/69 94 03/30/18 11:02 98.6 F 112 16 158/66 95 03/30/18 10:33 18 96 Intake and Output 03/30/18 03/30/18 03/31/18 15:59 23:59 07:59 Intake Total 1400 / 1400 200 / 200 1000 / 1000 Output Total 1000 / 1000 1700 / 1700 Balance 400 / 400 -1500 / -1500 1000 / 1000 Intake: IV Fluids 1000 / 1000 1000 / 1000 0.9 % Sodium Chloride 1,000 ML 1000 / 1000 1000 / 1000 @ 100 mls/hr IVC .Q10H [facility] Rx#: [id number] Free Water Intake Amount 400 / 400 200 / 200 Output: Catheter 1000 / 1000 1700 / 1700 Other: Stool Size Small # Bowel Movement Diapers 1 Blood Glucose* 121 160 - General Appearance General appearance: Present: well-developed, well-nourished EENT: Present: ATNC Additional Comments: tachycardic Neurologic: Present: alert and oriented x3 Additional Comments: frustrated - Lab 03/29/18 04:18 03/30/18 05:29 Most recent lab results Calcium 8.2 mg/dL (8.6-10.3) L 03/30/18 05:29 Phosphorus 4.3 mg/dL (2.7-4.5) 03/30/18 05:29 Urine Creatinine 52 mg/dL 03/30/18 18:10 Urine Sodium 128.0 mEq/L 03/30/18 18:10 Urine Total Protein 92 mg/dL (1-14) H 03/30/18 18:10 Consult Discharge Plan - Plan Referrals: NONE,PCP [Primary Care Provider] -
[2018-03-31] MEDS ORDERED: 0.9 % Sodium Chloride 1,000 ML IVC SCH (09:33)
--- NOTE | 2018-03-31 09:45 | Internal Med Progress Note ---
Hospitalist Progress Note - Encounter Date of Encounter: 03/31/18 Time of Encounter: 09:51 - Subjective Interval History: Patient seen and evaluated. Patient reports doing well. denies shortness of breath, or chest pain. Patient with expressive aphasia post cva. - Exam Vitals: Temp Pulse Resp BP Pulse Ox 99.1 F 114 18 180/82 97 03/31/18 07:13 03/31/18 07:13 03/31/18 07:55 03/31/18 07:13 03/31/18 07:55 Exam: General: Alert and oriented x3. IN no acute distress. Skin: dy oral mucosa HEENT: EOM, pupils equal, round and reactive. Cardiovascular: tachycardia, Normal S1 & S2, no rubs, murmurs or gallops. JVD about 6cm. Lungs: Clear to Auscultation b/l, no wheezes or crackles. Abdomen: Soft, non-tender, no rigidity. PEG tube insertion site, clean, nontende r. Extremities: no edema. strength 3/5 in the right upper and lower extr, 5/5 in the left uppr and lower extr Neurological: Normal cognition. Rest of the physical exam is non contributory - Assessment and Plan (1) Acute on chronic renal failure Current Visit: Yes Status: Acute Assessment and Plan: Kidney function improving. Plan DC sodium bicarbonate DC NS and start 0.45%NS as patient BP running in the high side. decrease IV fluids to 75mls/hr strict intake and output. last E.F noted 40%. avoid nephrotoxic medications will continue to follow nephrology recommendations. retroperitoneal US with Normal sonographic appearance of the kidneys. (2) Diabetes Current Visit: No Status: Chronic Assessment and Plan: Blood sugar well controlled continue levemir and lispro current dosage carb controlled diet (3) Hyperkalemia Current Visit: Yes Status: Resolved (4) HTN (hypertension) Current Visit: No Status: Chronic Assessment and Plan: Sub-optimally controlled BP plus tachycardia. Tachycardia multifactorial. Patient on Amlodipine and Hydralazine, but medications can case tachycardia. Hydralazine increased to 100mg/PO TID. Added metoprolol 25mg/PO BID continue amlodipine 10mg/PO daily will continue to monitor and adjust accordingly (5) Dysphagia Current Visit: No Status: Chronic Assessment and Plan: Most likley due to previous CVA NPO continue feeding through PEG tube. (6) History of stroke Current Visit: Yes Status: Chronic Assessment and Plan: Witih significant right sided weakness and expressive aphasia. Plan Pt/OT evaluated patient recommended to return to SNF daily PT/OT (7) Leukocytosis Current Visit: Yes Status: Acute Assessment and Plan: No clear infectious source has been identified. Port chest x-ray will continue to monitor consider starting antibiotics and sharma culture if patient spike a fever or WBC starts trending up. (8) Diarrhea Current Visit: Yes Status: Acute Assessment and Plan: patient reports loose stool. Multifactorial. Patient received kayaxelate, on enteral feeds plus patient on docusate. dc docusate. will monitor keep patient well hydrated but avoid volume overload. DVT Prophylaxis: On heparin 5000 units subcutaneous twice a day for DVT prophylaxis. - Time Spent with Patient Total time spent is greater than 50% in coordination of care (as documented) at patient's floor/unit and/or counseling patient: 25 - 35 minutes Plan of Care Discussed with: nurse Internal Medicine: Result - Labs CBC & Chem 7: 03/29/18 04:18 03/31/18 06:24 Labs: BMP 03/30/18 03/31/18 05:29 06:24 Sodium 145 142 Potassium 4.2 4.2 Chloride 109 H 112 H Carbon Dioxide 26 25 BUN 57 H 41 H Creatinine 2.07 H 1.63 H Glucose 179 H 164 H Calcium 8.2 L 8.6 Liver Function 03/30/18 03/31/18 Range/Units 05:29 06:24 Albumin 2.9 L 2.9 L (3.5-5.7) g/dL Urine 03/30/18 Range/Units 18:10 Urine Color Yellow (Yellow) Urine Clarity Clear (Clear) Urine pH 7.5 (5.0-8.0) pH Units Ur Specific Hustler 1.013 (1.010-1.025) Urine Protein 100 H (Neg-Trace) mg/dL Urine Glucose (UA) Normal (Normal) mg/dL Consult Discharge Plan - Plan Referrals: NONE,PCP [Primary Care Provider] - ____ (1) Acute on chronic renal failure Qualifiers: Acute renal failure type: unspecified Chronic kidney disease stage: stage 3 (moderate) Qualified Code(s): N17.9 - Acute kidney failure, unspecified; N18.3 - Chronic kidney disease, stage 3 (moderate) (2) Diabetes Qualifiers: Diabetes mellitus type: type 2 Diabetes mellitus half-way insulin use: unspecified terminal block assembler insulin use status Diabetes mellitus complication status: with unspecified complications Qualified Code(s): E11.8 - Type 2 diabetes mellitus with unspecified complications (4) HTN (hypertension) Qualifiers: Hypertension type: essential hypertension Qualified Code(s): I10 - Essential (primary) hypertension (5) Dysphagia Qualifiers: Dysphagia type: unspecified Qualified Code(s): R13.10 - Dysphagia, unspecified (7) Leukocytosis Qualifiers: Leukocytosis type: unspecified Qualified Code(s): D72.829 - Elevated white blood cell count, unspecified (8) Diarrhea Qualifiers: Qualified Code(s): R19.7 - Diarrhea, unspecified
[2018-03-31] MEDS: amLODIPine 5 MG TABLET PO SCH (09:50)
[2018-03-31] MEDS: Aspirin 81 MG TAB.CHEW PO SCH (09:50)
[2018-03-31] MEDS: Acetaminophen 325 MG TABLET PO PRN (09:53)
[2018-03-31] MEDS: hydrALAZINE 25 MG TABLET PO SCH ×3 (11:07→21:33)
[2018-03-31] MEDS ORDERED: hydrALAZINE 25 MG TABLET PO SCH (15:00)
[2018-03-31] MEDS: traMADol 50 MG TABLET PO PRN (16:17)
[2018-03-31] MEDS ORDERED: Saline Nasal Spray 44 ML BOTTLE NS PRN (17:20)
[2018-03-31] MEDS: Melatonin 3 MG TABLET PO SCH (21:33)
[2018-03-31] MEDS: Insulin DETEMIR 100 UNIT/ML X5UNITS SQ SCH (22:00)
[2018-04-01] MEDS: Insulin LISPRO 300 UNITS/3 ML VIAL SQ SCH ×3 (01:53→12:30)
[2018-04-01 03:08] LABS: Hepatitis C Virus Antibody Nonreactive (Nonreactive)
[2018-04-01 03:12] LABS: Hepatitis A Antibody IgM Nonreactive (Nonreactive); Hepatitis B Core IgM Nonreactive (Nonreactive)
[2018-04-01] MEDS: traMADol 50 MG TABLET PO PRN (05:23)
[2018-04-01] MEDS: *HR* Heparin 5,000 UNIT/ML VIAL SQ SCH (05:23)
[2018-04-01 05:39] LABS: Basophils % 0.2 %; Hematocrit 29.8 % (37.5-50.1); Hemoglobin 9.5 g/dL (12.9-16.9); Immature Granulocytes % 0.4 % (0-4); Lymphocytes # 0.7 K/mcL (0.6-4.6); Mean Corpuscular HGB Conc 31.9 g/dL (31.6-35.5); Mean Corpuscular Hemoglobin 29.6 pg (28.0-33.3); Mean Corpuscular Volume 92.8 fL (83.0-100.0); Mean Platelet Volume 10.8 fL (9.4-12.4); Monocytes # 0.7 K/mcL (0.0-1.3); Monocytes % 3.7 %; Neutrophils # 16.8 K/mcL (1.6-8.9); Platelet Count 299 K/mcL (140-400); Red Blood Count 3.21 M/mcL (4.19-5.50); Red Cell Distribution Width 13.2 % (11.5-14.5); Segmented Neutrophils % 91.7 %
[2018-04-01 06:03] LABS: Albumin 3.1 g/dL (3.5-5.7); Calcium 8.5 mg/dL (8.6-10.3); Phosphorous 3.2 mg/dL (2.7-4.5); Potassium 4.5 mEq/L (3.5-5.1)
--- NOTE | 2018-04-01 07:36 | Event Note ---
Date of Encounter: 04/01/18 Time of Encounter: 07:34 Nephrology Chart Review and Update I'm on-call starting today and see that this pt was consulted for PORFIRIO and hyperkalemia, with the latter having resolved and the former substantially better -- all without dialysis. I will sign-off at this point. Please feel free to call or reconsult with any nephrology questions. Thank you.
[2018-04-01] MEDS ORDERED: Levofloxacin 750 MG/150 ML 750 MG/150 ML BAG IVPB SCH (08:00)
[2018-04-01] MEDS: hydrALAZINE 25 MG TABLET PO SCH (08:30)
[2018-04-01] MEDS: Aspirin 81 MG TAB.CHEW PO SCH (08:30)
[2018-04-01] MEDS: amLODIPine 5 MG TABLET PO SCH (08:31)
--- NOTE | 2018-04-01 10:16 | Discharge Summary ---
- NOTES TO OUTPATIENT PROVIDER Notes to Outpatient Provider: BMP within 1-2 weeks of hospital discharge. Orders not resulted at time of discharge: Pending orders 03/30/18 05:29 KATELYN IgG THEODORE rflx IFA AM 0400 Complement Component 3 Routine Complement Component 4 Routine MPO/PR3 (ANCA) Antibodies Routine Protein Electrophoresis AM 0400 03/30/18 18:10 Eosinophil,Urine [URIN] Routine Immunofixation,Urine (BJP) Routine Sodium, Urine [UCHEM] Routine Urea Nitrogen,Urine [UCHEM] Routine Urinalysis reflex Microscopic [URIN] Routine Urine Protein Creat Ratio Payne [UCHEM] Routine 04/01/18 10:11 CRP [C-Reactive Protein] Stat Culture,Blood [BC] Stat ESR [Erythrocyte Sedimentation Rate] [HEME] Stat 04/02/18 04:00 Renal Function Panel AM 0400 Date of Encounter: 04/01/18 Time of Encounter: 10:14 - Discharge Diagnosis (1) Acute on chronic renal failure Priority: Primary Status: Resolved Assessment and Plan: Resolving. Qualifiers: Acute renal failure type: unspecified Chronic kidney disease stage: stage 3 (moderate) Qualified Code(s): N17.9 - Acute kidney failure, unspecified; N18.3 - Chronic kidney disease, stage 3 (moderate) (2) Diabetes Priority: Secondary Status: Chronic Qualifiers: Diabetes mellitus type: type 2 Diabetes mellitus prison insulin use: unspecified prison insulin use status Diabetes mellitus complication status: with unspecified complications Qualified Code(s): E11.8 - Type 2 diabetes mellitus with unspecified complications (3) Hyperkalemia Priority: Secondary Status: Resolved (4) HTN (hypertension) Priority: Secondary Status: Chronic Qualifiers: Hypertension type: essential hypertension Qualified Code(s): I10 - Essential (primary) hypertension (5) Dysphagia Priority: Secondary Status: Chronic Qualifiers: Dysphagia type: unspecified Qualified Code(s): R13.10 - Dysphagia, unspecified (6) History of stroke Priority: Secondary Status: Chronic (7) Leukocytosis Priority: Secondary Status: Acute Assessment and Plan: No clear source of infection. Chest x-ray negative for infiltrates, UA negative for UTI. Elevated rheumatoid factor. Qualifiers: Leukocytosis type: unspecified Qualified Code(s): D72.829 - Elevated white blood cell count, unspecified (8) Diarrhea Priority: Secondary Status: Chronic Qualifiers: Qualified Code(s): R19.7 - Diarrhea, unspecified Hospital course: Mr. Cantrell is a 57 year old male past medical history significant for CVA with right-sided hemiplegia, expressive aphasia, hypertension, diabetes and CAD. Patient was brought to the emergency room from a snf facility due to abnormal chemistry, patient found to be hyperkalemic with a potassium of 7.0 with no EKG changes, and a creatinine of 3.1. Patient treated with Kayexalate, IV insulin and nebs. Started on IV hydration, nephrology consulted for management of the care PORFIRIO. Kidney function trended back to baseline with IV hydration. Patient was also found to have an elevated WBC count, we no clear source of infections, and an elevated rheumatoid factor. Patient treated empirically with levofloxacin by mouth, and pancultures. Patient is hemodynamically is stable to be transferred back to the snf and to continue by mouth antibiotic for 5 days. Recommend to have a repeat BMP and a CBC within a week of hospital discharge. - Time Spent with Patient Total time spent providing and/or coordinating discharge services: Greater than 30 minutes - Discharge Medications Prescriptions: Levofloxacin [Levaquin] 750 mg PO DAILY 5 Days #5 tablet Metoprolol [Lopressor] 25 mg PO BID 30 Days #60 tablet Home Medications: Acetaminophen [Non-Aspirin] 650 mg PO Q4H PRN 03/28/18 [History] Amlodipine Besylate 10 mg PO DAILY 03/28/18 [History] Aspirin [Lo-Dose Aspirin EC] 81 mg PO DAILY 03/28/18 [History] Atorvastatin Calcium [Lipitor] 80 mg PO HS 03/28/18 [History] Insulin Glargine [Lantus] 20 unit SQ DAILY 03/28/18 [History] Insulin Human Regular [HumuLIN R] 2 - 12 unit SQ TID 03/28/18 [History] Ipratropium/Albuterol Neb [Duoneb] 3 ml IH Q6HR 03/28/18 [History] Melatonin 1 mg PO HS 03/28/18 [History] Omeprazole 40 mg PO DAILY 03/28/18 [History] Sertraline [Zoloft] 25 mg PO DAILY 03/28/18 [History] Sodium Bicarbonate 650 mg PO TID 03/28/18 [History] hydrALAZINE [HydrALAZINE] 75 mg PO TID 03/28/18 [History] traZODone [TraZODone] 25 mg PO HS PRN 03/28/18 [History] Levofloxacin [Levaquin] 750 mg PO DAILY 5 Days #5 tablet 04/01/18 [Rx] Metoprolol [Lopressor] 25 mg PO BID 30 Days #60 tablet 04/01/18 [Rx] Allergies/Adverse Reactions: Allergy/AdvReac Type Severity Reaction Status Date / Time No Known Allergies Allergy Verified 03/04/18 07:55 Date of admission: 03/29/18 09:24 Primary care physician: PCP NONE Consults: 03/28/18 16:00 Consult to Nephrology [CONS] Stat Consulting Provider: Kidney Denise/BECK/MARISOL/IAN Reason for Consult: ARF Call Completed: Yes 03/28/18 18:06 dietary consult [Consult to Nutrition] [CONS] Routine Comment: Consulting Provider: NUTRITION Reason for Dietary Consult: Tube Feed Start & Manage 03/28/18 18:25 Consult to Car Detailer [CONS] Routine Reason for SW Consult: patient wants POA established 03/28/18 20:01 Consult to Wound Care [CONS] Routine Reason for Consult: coccyx wound of unknown etiology measuring 0.3x0.3x1.1 Call Completed: Yes 03/29/18 10:40 Consult to Occupational Therapy [CONS] Routine Comment: Evaluate, develop and implement POC Reason for Consult: eval for pre-cert to rtn to ecf Does patient have active BEDREST order?: No Is patient medically & hemodynamically stable?: Yes Consult to Physical Therapy [CONS] Routine Comment: Evaluate, develop and implement POC Reason for Consult: eval for pre-cert to rtn to ecf Does patient have active BEDREST order?: No Is patient medically & hemodynamically stable?: Yes - Constitutional Vitals: Temp Pulse Resp BP Pulse Ox 98.7 F 105 16 168/76 96 04/01/18 07:18 04/01/18 07:18 04/01/18 07:18 04/01/18 07:18 04/01/18 07:18 General appearance: Present: cooperative, A&O X 2 Exam: General: Alert and oriented x3. IN no acute distress. reports feeling hot, but a febrile. Skin: Oral mucosa is moist. Cardiovascular: RRR, Normal S1 & S2, no rubs, murmurs or gallops. JVD about 6cm. Lungs: Clear to Auscultation b/l, no wheezes or crackles. Abdomen: Soft, non-tender, no rigidity. PEG tube insertion site, clean, nontender. Extremities: no edema. strength 3/5 in the right upper and lower extr, 5/5 in the left uppr and lower extr Neurological: Normal cognition. Rest of the physical exam is non contributory - Patient Status Disposition: Transfer SNF Condition: Good Functional capacity at discharge: wheelchair bound Overall status at discharge: patient is back to baseline - Discharge Instructions Follow Up With: NONE,PCP [Primary Care Provider] - - Diet and Activity Activity: as per physical therapy Diet: diabetic diet
--- NOTE | 2018-04-01 10:39 | Physician Discharge Referral ---
ExtendedCare Referral Info Transfer To: snf Institutional Level of Care: Skilled - Diagnosis (1) Acute on chronic renal failure Priority: Primary Status: Resolved (2) Diabetes Priority: Secondary Status: Chronic (3) Hyperkalemia Priority: Secondary Status: Resolved (4) HTN (hypertension) Priority: Secondary Status: Chronic (5) Dysphagia Priority: Secondary Status: Chronic (6) History of stroke Priority: Secondary Status: Chronic (7) Leukocytosis Priority: Secondary Status: Acute (8) Diarrhea Priority: Secondary Status: Chronic Prognosis: Fair Aware of Diagnosis: Patient Aware of Prognosis: Patient - Transfer Medications Prescriptions: Levofloxacin [Levaquin] 750 mg PO DAILY 5 Days #5 tablet Metoprolol [Lopressor] 25 mg PO BID 30 Days #60 tablet Home Medications: Acetaminophen [Non-Aspirin] 650 mg PO Q4H PRN 03/28/18 [History] Amlodipine Besylate 10 mg PO DAILY 03/28/18 [History] Aspirin [Lo-Dose Aspirin EC] 81 mg PO DAILY 03/28/18 [History] Atorvastatin Calcium [Lipitor] 80 mg PO HS 03/28/18 [History] Insulin Glargine [Lantus] 20 unit SQ DAILY 03/28/18 [History] Insulin Human Regular [HumuLIN R] 2 - 12 unit SQ TID 03/28/18 [History] Ipratropium/Albuterol Neb [Duoneb] 3 ml IH Q6HR 03/28/18 [History] Melatonin 1 mg PO HS 03/28/18 [History] Omeprazole 40 mg PO DAILY 03/28/18 [History] Sertraline [Zoloft] 25 mg PO DAILY 03/28/18 [History] Sodium Bicarbonate 650 mg PO TID 03/28/18 [History] hydrALAZINE [HydrALAZINE] 75 mg PO TID 03/28/18 [History] traZODone [TraZODone] 25 mg PO HS PRN 03/28/18 [History] Levofloxacin [Levaquin] 750 mg PO DAILY 5 Days #5 tablet 04/01/18 [Rx] Metoprolol [Lopressor] 25 mg PO BID 30 Days #60 tablet 04/01/18 [Rx] Allergies/Adverse Reactions: Allergy/AdvReac Type Severity Reaction Status Date / Time No Known Allergies Allergy Verified 03/04/18 07:55 - Respiratory Orders None Smoking Cessation: Smoking cessation has been advised. For more information, call the [place] Tobacco Quit Line at 1-031-TMCS-NOW. - Advance Directives Code Status: Full Code - Mobility Orders Chair - Rehabiliation Orders Rehab Potential: Fair Rehab Orders: Evaluation for Physical Therapy CERTIFICATION: I certify that the transfer of the above named patient to an Extended Care Facility is necessary for the continuing treatment of the diagnosis listed. The above information is true and accurate reflection of patient's current condition. Confidential - Redisclosure prohibited without a patient's written consent.
[2018-04-01 11:14] VITALS: BP 157/71
[2018-04-01 15:15] LABS: Complement Component 3 133 mg/dL (88-201); Complement Component 4 44 mg/dL (10-40)
[2018-04-02 08:07] LABS: ANA IgG by ELISA NONE DETECTED (None Detected); Myeloperoxidase Ab 0 AU/mL (0-19); Serine Protease-3 Antibody 3 AU/mL (0-19)
[2018-04-02] MEDS ORDERED: Levofloxacin 750 MG/150 ML 750 MG/150 ML BAG IVPB SCH (09:00)
[2018-04-02 22:46] LABS: Urine Collection Duration RANDOM hr; Urine Collection Volume RANDOM mL
[2018-04-02 23:47] LABS: Alpha 2 Globulin (PEP) 0.95 g/dL (0.48-1.05); Beta Globulin (PEP) 0.78 g/dL (0.48-1.10)
[2018-04-03 09:25] LABS: IFE Reflexed IFE Done; Immunoglobulin A 293 mg/dL (68-408); Immunoglobulin G 915 mg/dL (768-1632); Immunoglobulin M 84 mg/dL (35-263)
== END 2018-04-01 15:01 | DRG 469 ==
LOC: 2ANU 14:41 → EMEROOARM 14:41 → 2ANU 17:49
PROVIDERS: ADMIT Internal Medicine; ATTEND Internal Medicine

== ENCOUNTER 2021-12-08 15:00 | Inpatient (IN) ==
[2021-12-08 18:09] LABS: Basophils % 0.5 %; Hematocrit 23.6 % (37.5-50.1); Hemoglobin 7.4 g/dL (12.9-16.9); Immature Granulocytes % 0.2 % (0-4); Lymphocytes # 1.3 K/mcL (0.6-4.6); Lymphocytes % 15.5 %; Mean Corpuscular HGB Conc 31.4 g/dL (31.6-35.5); Mean Corpuscular Hemoglobin 29.6 pg (28.0-33.3); Mean Corpuscular Volume 94.4 fL (83.0-100.0); Mean Platelet Volume 9.9 fL (9.4-12.4); Monocytes # 0.9 K/mcL (0.0-1.3); Monocytes % 10.4 %; Platelet Count 311 K/mcL (140-400); Red Cell Distribution Width 14.6 % (11.5-14.5); Segmented Neutrophils % 73.4 %; White Blood Count 8.2 K/mcL (4.3-11.1)
[2021-12-08 19:02] LABS: Calcium 8.6 mg/dL (8.6-10.3)
[2021-12-08 19:55] LABS: Albumin 3.4 g/dL (3.5-5.7); Bilirubin,Indirect 0.2 mg/dL (0.0-1.0); Bilirubin,Total 0.2 mg/dL (0.3-1.0); Globulin 3.5 g/dL (2.4-3.5); Total Protein 6.9 g/dL (6.4-8.9)
[2021-12-08] MEDS ORDERED: cefTRIAXone 1,000 MG in 0.9 % Sodium Chloride 10 ML IVP ONE (22:03)
[2021-12-08] MEDS ORDERED: Vancomycin 1,500 MG/265 ML IV.SOLN IVPB ONE (22:03)
[2021-12-08 22:21] LABS: Amorphous Sediment,Urine Few per hpf (None-Few); Bacteria,Urine Few per hpf (None-Few); Bilirubin,Urine Negative (Negative); Blood,Urine Moderate (Negative); Budding Yeast,Urine Few per hpf (None Seen); Clarity,Urine Turbid (Clear); Color,Urine Light-Yellow (Yellow); Glucose,Urine (UA) Normal (Normal); Ketones,Urine Negative (Negative); Leukocyte Esterase,Urine Trace (Negative); Mucus,Urine Few per lpf (None-Few); Nitrite,Urine Negative (Negative); PH,Urine 5.5 pH Units (5.0-8.0); Protein,Urine 50 mg/dL (Neg-Trace); RBC,Urine 50-100 per hpf (0-3); Specific Gravity,Urine 1.011 (1.010-1.025); Squamous Epithelial Cell,Urine Few per hpf (None-Few); Urobilinogen,Urine Normal (Normal)
[2021-12-09] MEDS ORDERED: Ondansetron ODT 4 MG TAB.RAPDIS SL PRN (00:25)
[2021-12-09] MEDS ORDERED: Melatonin 3 MG TABLET PO PRN (00:25)
[2021-12-09] MEDS ORDERED: Naloxone 0.4 MG/ML INJ IVP PRN (00:25)
[2021-12-09] MEDS ORDERED: D5% in Water 1,000 ML IVC PRN (01:56)
[2021-12-09] MEDS ORDERED: *HR* Dextrose 50 % in Water (Syg) 50 ML SYRINGE IVP PRN (01:56)
[2021-12-09] MEDS ORDERED: Dextrose Gel 15 GM/37.5 ML TUBE PO PRN ×2 (01:56)
[2021-12-09 04:32] LABS: Adenovirus Not Detected (Not Detect); Bordetella Pertussis Not Detected (Not Detect); Chlamydophila pneumoniae Not Detected (Not Detect); Coronavirus 229E Not Detected (Not Detect); Coronavirus HKU1 Not Detected (Not Detect); Coronavirus NL63 Not Detected (Not Detect); Coronavirus OC43 Not Detected (Not Detect); Human Metapneumovirus Not Detected (Not Detect); Human Rhinovirus/Enterovirus Not Detected (Not Detect); Influenza A Subtype 2009 H1 Not Detected (Not Detect); Influenza B Not Detected (Not Detect); Mycoplasma pneumoniae Not Detected (Not Detect); Parainfluenza Virus 1 Not Detected (Not Detect); Parainfluenza Virus 2 Not Detected (Not Detect); Parainfluenza Virus 3 Not Detected (Not Detect); Parainfluenza Virus 4 Not Detected (Not Detect); Respiratory Syncytial Virus Not Detected (Not Detect); SARS-CoV-2 Not Detected (Not Detect)
[2021-12-09 05:42] LABS: Hematocrit 23.9 % (37.5-50.1); Hemoglobin 7.3 g/dL (12.9-16.9); Mean Corpuscular HGB Conc 30.5 g/dL (31.6-35.5); Mean Corpuscular Hemoglobin 29.3 pg (28.0-33.3); Mean Platelet Volume 10.3 fL (9.4-12.4); Platelet Count 282 K/mcL (140-400); Red Blood Count 2.49 M/mcL (4.19-5.50); Red Cell Distribution Width 14.6 % (11.5-14.5); White Blood Count 6.7 K/mcL (4.3-11.1)
[2021-12-09] MEDS: Insulin LISPRO 300 UNITS/3 ML VIAL SUBQ SCH ×4 (06:07→23:21)
[2021-12-09 06:50] LABS: Albumin 3.2 g/dL (3.5-5.7); Albumin/Globulin Ratio 1.1 (1.1-2.2); Bilirubin,Total 0.2 mg/dL (0.3-1.0); Calcium 7.4 mg/dL (8.6-10.3); Potassium 4.7 mEq/L (3.5-5.1); Total Protein 6.2 g/dL (6.4-8.9)
[2021-12-09 07:28] LABS: % Iron Saturation 20 % (20-55); Iron 33 mcg/dL (65-175); Transferrin 120 mg/dL (203-362)
[2021-12-09 07:38] LABS: Ferritin 239 ng/mL (20-250)
[2021-12-09] MEDS: *HR* Heparin 5,000 UNIT/ML VIAL SQ SCH ×3 (09:02→20:58)
[2021-12-09] MEDS: Cefepime HCl 2,000 MG in 0.9 % Sodium Chloride 10 ML IVP SCH (09:02)
[2021-12-09 14:31] LABS: Protein/Creatinine Ratio,Urine 0.65 mg/mg (0.00-0.20)
[2021-12-10] MEDS: *HR* Heparin 5,000 UNIT/ML VIAL SQ SCH ×3 (05:29→21:31)
[2021-12-10] MEDS: Insulin LISPRO 300 UNITS/3 ML VIAL SUBQ SCH ×3 (05:36→17:33)
[2021-12-10 06:13] LABS: Basophils % 0.3 %; Hematocrit 23.7 % (37.5-50.1); Hemoglobin 7.2 g/dL (12.9-16.9); Immature Granulocytes % 0.3 % (0-4); Lymphocytes # 1.2 K/mcL (0.6-4.6); Lymphocytes % 17.9 %; Mean Corpuscular HGB Conc 30.4 g/dL (31.6-35.5); Mean Corpuscular Volume 95.6 fL (83.0-100.0); Mean Platelet Volume 9.5 fL (9.4-12.4); Monocytes # 0.7 K/mcL (0.0-1.3); Monocytes % 10.1 %; Neutrophils # 4.7 K/mcL (1.6-8.9); Platelet Count 285 K/mcL (140-400); Red Blood Count 2.48 M/mcL (4.19-5.50); Red Cell Distribution Width 14.6 % (11.5-14.5); Segmented Neutrophils % 71.4 %; White Blood Count 6.6 K/mcL (4.3-11.1)
[2021-12-10 06:36] LABS: Calcium 8.3 mg/dL (8.6-10.3); Magnesium 2.1 mg/dL (1.6-2.6); Phosphorous 4.4 mg/dL (2.7-4.5); Potassium 4.9 mEq/L (3.5-5.1)
[2021-12-10 09:07] LABS: Vitamin D 25 Hydroxy 25 ng/mL (30-80)
[2021-12-10] MEDS: Cefepime HCl 2,000 MG in 0.9 % Sodium Chloride 10 ML IVP SCH (09:28)
[2021-12-10 10:15] LABS: Rheumatoid Factor 114 IU/mL (Less than 14)
[2021-12-10 10:51] LABS: Complement C3 94 mg/dL (87-200)
[2021-12-10 11:07] LABS: Hepatitis B Surface Antigen Nonreactive (Nonreactive)
[2021-12-10 11:36] LABS: Hepatitis B Core IgM Nonreactive (Nonreactive); Hepatitis C Virus Antibody Nonreactive (Nonreactive)
[2021-12-10 11:38] LABS: Hepatitis A Antibody IgM Nonreactive (Nonreactive)
[2021-12-10] MEDS ORDERED: *HR* Labetalol 20 MG/4 ML SYRINGE IVP PRN (18:29)
[2021-12-10] MEDS ORDERED: Nitroglycerin 0.4 MG TAB.SUBL SL PRN (18:30)
[2021-12-10] MEDS ORDERED: traZODone 50 MG TABLET PO PRN (18:30)
[2021-12-10] MEDS ORDERED: Gabapentin 100 MG CAPSULE PO SCH (21:00)
[2021-12-10] MEDS: Gabapentin 400 MG CAPSULE PO SCH (21:30)
[2021-12-10] MEDS: hydrALAZINE 25 MG TABLET PO SCH (21:30)
[2021-12-10] MEDS: amLODIPine 5 MG TABLET PO SCH (21:31)
[2021-12-11] MEDS: Insulin LISPRO 300 UNITS/3 ML VIAL SUBQ SCH ×4 (01:27→18:01)
[2021-12-11] MEDS: *HR* Heparin 5,000 UNIT/ML VIAL SQ SCH ×3 (05:21→20:35)
[2021-12-11 07:25] LABS: Basophils % 0.5 %; Eosinophils # 0.3 K/mcL (0.0-0.6); Eosinophils % 3.7 %; Hematocrit 23.3 % (37.5-50.1); Hemoglobin 7.2 g/dL (12.9-16.9); Immature Granulocytes % 0.5 % (0-4); Lymphocytes # 2.1 K/mcL (0.6-4.6); Lymphocytes % 26.9 %; Mean Corpuscular HGB Conc 30.9 g/dL (31.6-35.5); Mean Corpuscular Hemoglobin 29.5 pg (28.0-33.3); Mean Corpuscular Volume 95.5 fL (83.0-100.0); Mean Platelet Volume 9.5 fL (9.4-12.4); Monocytes % 12.4 %; Neutrophils # 4.4 K/mcL (1.6-8.9); Platelet Count 280 K/mcL (140-400); Red Blood Count 2.44 M/mcL (4.19-5.50); Red Cell Distribution Width 14.8 % (11.5-14.5); White Blood Count 7.9 K/mcL (4.3-11.1)
[2021-12-11 07:47] LABS: Calcium 8.2 mg/dL (8.6-10.3); Magnesium 1.9 mg/dL (1.6-2.6); Phosphorous 4.2 mg/dL (2.7-4.5); Potassium 4.4 mEq/L (3.5-5.1)
[2021-12-11] MEDS ORDERED: Iron Sucrose Complex 200 MG in 0.9 % Sodium Chloride 100 ML IVPB ONE (08:19)
[2021-12-11] MEDS: Aspirin Enteric Coated 81 MG Tablet PO SCH (08:59)
[2021-12-11] MEDS: amLODIPine 5 MG TABLET PO SCH (08:59)
[2021-12-11] MEDS ORDERED: NON-FORMULARY MEDICATION 1 EACH EACH (Cholecalciferol (Vitamin D3) [Vitamin D3] 25 MCG Cap PO SCH (09:00)
[2021-12-11] MEDS: Gabapentin 400 MG CAPSULE PO SCH ×3 (09:00→20:35)
[2021-12-11] MEDS: hydrALAZINE 25 MG TABLET PO SCH ×3 (09:00→20:35)
[2021-12-11] MEDS: Famotidine 20 MG TABLET PO SCH (09:00)
[2021-12-11] MEDS: Cholecalciferol (D-3) 1,000 UNIT (25MCG) TABLET PO SCH (09:00)
[2021-12-11] MEDS ORDERED: Losartan/HCTZ 50-12.5 TABLET PO SCH (09:00)
[2021-12-11] MEDS: Cefepime HCl 2,000 MG in 0.9 % Sodium Chloride 10 ML IVP SCH (09:01)
[2021-12-11] MEDS: Cyanocobalamin (B-12) 1,000 MCG TABLET PO SCH (09:01)
[2021-12-11] MEDS: SODIUM ZIRCONIUM CYCLOSILICATE 5 GM POWD.PACK PO SCH (09:02)
[2021-12-11 14:42] LABS: Total Volume 24 Hour,Urine 2.92 Liters (0.80-1.80)
[2021-12-11 15:04] LABS: Protein/Creatinine Ratio,Urine 1.72 mg/mg (0.00-0.20)
[2021-12-12] MEDS: Insulin LISPRO 300 UNITS/3 ML VIAL SUBQ SCH ×4 (00:40→17:07)
[2021-12-12] MEDS: *HR* Heparin 5,000 UNIT/ML VIAL SQ SCH ×3 (06:09→20:46)
[2021-12-12 06:37] LABS: Basophils % 0.4 %; Eosinophils # 0.3 K/mcL (0.0-0.6); Eosinophils % 3.7 %; Hematocrit 23.2 % (37.5-50.1); Immature Granulocytes % 0.6 % (0-4); Lymphocytes # 1.9 K/mcL (0.6-4.6); Lymphocytes % 22.2 %; Mean Corpuscular HGB Conc 30.2 g/dL (31.6-35.5); Mean Corpuscular Hemoglobin 29.2 pg (28.0-33.3); Mean Corpuscular Volume 96.7 fL (83.0-100.0); Mean Platelet Volume 9.7 fL (9.4-12.4); Monocytes # 0.8 K/mcL (0.0-1.3); Monocytes % 9.7 %; Neutrophils # 5.3 K/mcL (1.6-8.9); Platelet Count 277 K/mcL (140-400); Red Cell Distribution Width 14.7 % (11.5-14.5); Segmented Neutrophils % 63.4 %; White Blood Count 8.4 K/mcL (4.3-11.1)
[2021-12-12 06:58] LABS: Calcium 8.1 mg/dL (8.6-10.3); Magnesium 1.9 mg/dL (1.6-2.6); Phosphorous 4.3 mg/dL (2.7-4.5); Potassium 4.5 mEq/L (3.5-5.1)
[2021-12-12] MEDS: Cefepime HCl 2,000 MG in 0.9 % Sodium Chloride 10 ML IVP SCH (08:05)
[2021-12-12] MEDS: Cholecalciferol (D-3) 1,000 UNIT (25MCG) TABLET PO SCH (08:06)
[2021-12-12] MEDS: SODIUM ZIRCONIUM CYCLOSILICATE 5 GM POWD.PACK PO SCH (08:06)
[2021-12-12] MEDS: Famotidine 20 MG TABLET PO SCH (08:07)
[2021-12-12] MEDS: amLODIPine 5 MG TABLET PO SCH (08:07)
[2021-12-12] MEDS: Cyanocobalamin (B-12) 1,000 MCG TABLET PO SCH (08:07)
[2021-12-12] MEDS: Gabapentin 400 MG CAPSULE PO SCH ×3 (08:07→20:46)
[2021-12-12] MEDS: Aspirin Enteric Coated 81 MG Tablet PO SCH (08:07)
[2021-12-12] MEDS: hydrALAZINE 25 MG TABLET PO SCH ×3 (08:07→20:46)
[2021-12-12 12:09] LABS: Adenovirus F 40/41 PCR Not detected (Not detect); Astrovirus PCR Not detected (Not detect); Campylobacter by PCR Not detected (Not detect); Cryptosporidium by PCR Not detected (Not detect); Cyclospora cayetanensis PCR Not detected (Not detect); Entamoeba histolytica PCR Not detected (Not detect); Enteroaggregative E.coli(EAEC) Not detected (Not detect); Enteropathogenic E.coli(EPEC) Not detected (Not detect); Enterotoxigenic E.coli (ETEC) Not detected (Not detect); Giardia lamblia PCR Not detected (Not detect); Norovirus GI/GII PCR Not detected (Not detect); Plesiomonas shigelloides PCR Not detected (Not detect); Rotavirus A PCR Not detected (Not detect); Salmonella PCR Not detected (Not detect); Sapovirus PCR Not detected (Not detect); Shig/EnteroinvasiveE coli EIEC Not detected (Not detect); Shigalike tox-prod E coli STEC Not detected (Not detect); Vibrio PCR Not detected (Not detect); Vibrio cholerae PCR Not detected (Not detect); Yersinia enterocolitica PCR Not detected (Not detect)
[2021-12-12 12:12] LABS: C.difficile Toxin A/B Gene PCR DETECTED (Not detect)
[2021-12-12] MEDS: Vancomycin Oral Soln 125 MG/2.5 ML UDC PO SCH ×3 (14:52→20:46)
[2021-12-13] MEDS: Insulin LISPRO 300 UNITS/3 ML VIAL SUBQ SCH ×4 (01:20→18:38)
[2021-12-13 03:31] LABS: Alpha 2 Globulin (PEP) 0.88 g/dL (0.48-1.05); Beta Globulin (PEP) 0.61 g/dL (0.48-1.10)
[2021-12-13] MEDS: *HR* Heparin 5,000 UNIT/ML VIAL SQ SCH ×3 (05:00→20:29)
[2021-12-13 05:47] LABS: Basophils % 0.4 %; Eosinophils # 0.4 K/mcL (0.0-0.6); Eosinophils % 3.8 %; Hematocrit 21.2 % (37.5-50.1); Hemoglobin 6.6 g/dL (12.9-16.9); Immature Granulocytes % 0.8 % (0-4); Lymphocytes # 2.2 K/mcL (0.6-4.6); Lymphocytes % 23.7 %; Mean Corpuscular HGB Conc 31.1 g/dL (31.6-35.5); Mean Corpuscular Hemoglobin 29.9 pg (28.0-33.3); Mean Corpuscular Volume 95.9 fL (83.0-100.0); Mean Platelet Volume 9.9 fL (9.4-12.4); Monocytes # 0.8 K/mcL (0.0-1.3); Monocytes % 8.2 %; Neutrophils # 5.9 K/mcL (1.6-8.9); Platelet Count 260 K/mcL (140-400); Red Blood Count 2.21 M/mcL (4.19-5.50); Red Cell Distribution Width 14.6 % (11.5-14.5); Segmented Neutrophils % 63.1 %; White Blood Count 9.3 K/mcL (4.3-11.1)
[2021-12-13 06:01] LABS: Calcium 7.8 mg/dL (8.6-10.3); Magnesium 1.8 mg/dL (1.6-2.6); Phosphorous 3.8 mg/dL (2.7-4.5); Potassium 4.2 mEq/L (3.5-5.1)
[2021-12-13] MEDS ORDERED: 0.9 % Sodium Chloride 250 ML IVC SCH (07:45)
[2021-12-13 09:24] LABS: Kappa Qnt Free Light Chains 75.1 mg/L (3.30-19.40); Lambda Qnt Free Light Chains 75.27 mg/L (5.71-26.30)
[2021-12-13 09:28] LABS: IFE Reflexed NOT DONE
[2021-12-13] MEDS: SODIUM ZIRCONIUM CYCLOSILICATE 5 GM POWD.PACK PO SCH (09:37)
[2021-12-13] MEDS: Vancomycin Oral Soln 125 MG/2.5 ML UDC PO SCH ×4 (09:37→20:29)
[2021-12-13] MEDS: hydrALAZINE 25 MG TABLET PO SCH ×3 (09:38→20:29)
[2021-12-13] MEDS: amLODIPine 5 MG TABLET PO SCH (09:38)
[2021-12-13] MEDS: Aspirin Enteric Coated 81 MG Tablet PO SCH (09:39)
[2021-12-13] MEDS: Cholecalciferol (D-3) 1,000 UNIT (25MCG) TABLET PO SCH (09:39)
[2021-12-13] MEDS: Famotidine 20 MG TABLET PO SCH (09:39)
[2021-12-13] MEDS: Cyanocobalamin (B-12) 1,000 MCG TABLET PO SCH (09:40)
[2021-12-13] MEDS: Ammonium Lactate 30 APPL/225 GM BOTTLE TP SCH ×2 (09:41→20:28)
[2021-12-13] MEDS: Gabapentin 400 MG CAPSULE PO SCH ×3 (09:41→20:29)
[2021-12-14] MEDS: Insulin LISPRO 300 UNITS/3 ML VIAL SUBQ SCH ×4 (00:21→16:50)
[2021-12-14 04:02] LABS: Basophils % 0.5 %; Eosinophils # 0.5 K/mcL (0.0-0.6); Eosinophils % 6.1 %; Hematocrit 23.3 % (37.5-50.1); Hemoglobin 7.4 g/dL (12.9-16.9); Immature Granulocytes % 1.1 % (0-4); Lymphocytes % 23.9 %; Mean Corpuscular HGB Conc 31.8 g/dL (31.6-35.5); Mean Corpuscular Hemoglobin 29.5 pg (28.0-33.3); Mean Corpuscular Volume 92.8 fL (83.0-100.0); Mean Platelet Volume 10.1 fL (9.4-12.4); Monocytes # 0.8 K/mcL (0.0-1.3); Monocytes % 9.2 %; Neutrophils # 4.9 K/mcL (1.6-8.9); Nucleated Red Blood Cells 0.2 /100 WBC (0); Platelet Count 263 K/mcL (140-400); Red Blood Count 2.51 M/mcL (4.19-5.50); Segmented Neutrophils % 59.2 %; White Blood Count 8.3 K/mcL (4.3-11.1)
[2021-12-14 04:21] LABS: Magnesium 1.7 mg/dL (1.6-2.6); Phosphorous 3.9 mg/dL (2.7-4.5); Potassium 4.6 mEq/L (3.5-5.1)
[2021-12-14] MEDS: *HR* Heparin 5,000 UNIT/ML VIAL SQ SCH ×3 (06:31→20:36)
[2021-12-14] MEDS: Aspirin Enteric Coated 81 MG Tablet PO SCH (07:45)
[2021-12-14] MEDS: Famotidine 20 MG TABLET PO SCH (07:45)
[2021-12-14] MEDS: Gabapentin 400 MG CAPSULE PO SCH ×3 (07:45→20:35)
[2021-12-14] MEDS: Cyanocobalamin (B-12) 1,000 MCG TABLET PO SCH (07:46)
[2021-12-14] MEDS: Cholecalciferol (D-3) 1,000 UNIT (25MCG) TABLET PO SCH (07:46)
[2021-12-14] MEDS: hydrALAZINE 25 MG TABLET PO SCH ×3 (07:46→20:36)
[2021-12-14] MEDS: amLODIPine 5 MG TABLET PO SCH (07:47)
[2021-12-14] MEDS: SODIUM ZIRCONIUM CYCLOSILICATE 5 GM POWD.PACK PO SCH (07:47)
[2021-12-14] MEDS: Ammonium Lactate 30 APPL/225 GM BOTTLE TP SCH ×2 (07:48→20:38)
[2021-12-14] MEDS: Vancomycin Oral Soln 125 MG/2.5 ML UDC PO SCH ×4 (07:48→20:36)
[2021-12-14 19:15] LABS: Urine Collection Volume 2916 mL
[2021-12-15] MEDS: Insulin LISPRO 300 UNITS/3 ML VIAL SUBQ SCH ×4 (00:38→17:24)
[2021-12-15 04:51] LABS: Basophils % 0.4 %; Hematocrit 24.8 % (37.5-50.1); Hemoglobin 7.9 g/dL (12.9-16.9); Immature Granulocytes % 1.1 % (0-4); Lymphocytes # 2.1 K/mcL (0.6-4.6); Mean Corpuscular HGB Conc 31.9 g/dL (31.6-35.5); Mean Corpuscular Hemoglobin 30.3 pg (28.0-33.3); Mean Platelet Volume 9.9 fL (9.4-12.4); Monocytes # 0.8 K/mcL (0.0-1.3); Monocytes % 9.3 %; Neutrophils # 5.3 K/mcL (1.6-8.9); Platelet Count 270 K/mcL (140-400); Red Blood Count 2.61 M/mcL (4.19-5.50); Segmented Neutrophils % 64.2 %; White Blood Count 8.3 K/mcL (4.3-11.1)
[2021-12-15 05:02] LABS: Magnesium 1.9 mg/dL (1.6-2.6); Phosphorous 3.2 mg/dL (2.7-4.5); Potassium 4.8 mEq/L (3.5-5.1)
[2021-12-15] MEDS: *HR* Heparin 5,000 UNIT/ML VIAL SQ SCH ×3 (05:38→21:00)
[2021-12-15] MEDS: Cyanocobalamin (B-12) 1,000 MCG TABLET PO SCH (10:02)
[2021-12-15] MEDS: Ammonium Lactate 30 APPL/225 GM BOTTLE TP SCH ×2 (10:02→21:00)
[2021-12-15] MEDS: Aspirin Enteric Coated 81 MG Tablet PO SCH (10:03)
[2021-12-15] MEDS: hydrALAZINE 25 MG TABLET PO SCH ×3 (10:03→21:01)
[2021-12-15] MEDS: Famotidine 20 MG TABLET PO SCH (10:03)
[2021-12-15] MEDS: amLODIPine 5 MG TABLET PO SCH (10:03)
[2021-12-15] MEDS: Gabapentin 400 MG CAPSULE PO SCH ×3 (10:04→21:01)
[2021-12-15] MEDS: Vancomycin Oral Soln 125 MG/2.5 ML UDC PO SCH ×4 (10:05→21:02)
[2021-12-15] MEDS: Cholecalciferol (D-3) 1,000 UNIT (25MCG) TABLET PO SCH (10:10)
[2021-12-16] MEDS: Insulin LISPRO 300 UNITS/3 ML VIAL SUBQ SCH ×2 (00:18→05:31)
[2021-12-16 05:53] VITALS: O2SAT 95
[2021-12-16] MEDS: *HR* Heparin 5,000 UNIT/ML VIAL SQ SCH (06:00)
[2021-12-16 07:04] VITALS: BP 156/70; PULSE 80; TEMP 97.6
[2021-12-16] MEDS: amLODIPine 5 MG TABLET PO SCH (08:12)
[2021-12-16] MEDS: Aspirin Enteric Coated 81 MG Tablet PO SCH (08:13)
[2021-12-16] MEDS: hydrALAZINE 25 MG TABLET PO SCH (08:13)
[2021-12-16] MEDS: Cholecalciferol (D-3) 1,000 UNIT (25MCG) TABLET PO SCH (08:13)
[2021-12-16] MEDS: Ammonium Lactate 30 APPL/225 GM BOTTLE TP SCH (08:14)
[2021-12-16] MEDS: Gabapentin 400 MG CAPSULE PO SCH (08:14)
[2021-12-16] MEDS: Vancomycin Oral Soln 125 MG/2.5 ML UDC PO SCH (08:14)
[2021-12-16] MEDS: Cyanocobalamin (B-12) 1,000 MCG TABLET PO SCH (08:14)
[2021-12-16 09:23] LABS: Calcium 8.3 mg/dL (8.6-10.3); Potassium 5.4 mEq/L (3.5-5.1)
[2021-12-17] MEDS ORDERED: Famotidine 20 MG TABLET PO SCH (09:00)
== END 2021-12-16 13:30 | disposition hospice, home (50) | DRG 383 ==
LOC: 3NENU 15:00 → EMEROOARM 15:00 → 3NENU 12-09 01:21 → SUATTDRO 12-09 15:17
PROVIDERS: ADMIT Student in an Organized Health Care Education/Training Program; ATTEND Hospitalist